=== PATIENT | male | born 1985 | race Caucasian/White ===

== ENCOUNTER 2016-12-24 17:09 | Emergency (ER) | payer BC ==
[2016-12-24] MEDS ORDERED: GLUCAGON 1 MG/ML VIAL IVP STA (18:18)
[2016-12-24] MEDS ORDERED: SODIUM CHLORIDE 0.9% 500 ML IV ONE (18:18)
[2016-12-24] MEDS ORDERED: NITROGLYCERIN SL TABS 0.4 MG TAB SUBLINGUAL STA (18:18)
[2016-12-24] MEDS ORDERED: DIAZEPAM 5 MG/ML 2 ML SYRINGE IVP STA (18:18)
[2016-12-24] MEDS ORDERED: METOCLOPRAMIDE 5 MG/ML 2 ML VIAL IVP STA (18:18)
--- NOTE | 2016-12-24 18:22 | ED ---
General Adult HPI - General Chief complaint: ENT Stated complaint: Food stuck in throat Time Seen by Provider: 12/24/16 18:00 Source: patient, RN notes reviewed Mode of arrival: ambulatory Limitations: no limitations - History of Present Illness Initial comments: This is a 31-year-old male who presents to the emergency department complaining of inability to swallow after eating boneless chicken. Patient states it started about an hour ago. Patient states he had a history of similar but typically it eventually passes. Patient denies any endoscopy procedure in the past. Patient denies any difficulty breathing shortest breath. Patient denies any recent fever or chills. patient denies any chest pain. - Related Data Home Medications Medication Instructions Recorded Confirmed No Known Home Medications [No 12/24/16 12/24/16 Known Home Medications] Allergies Allergy/AdvReac Type Severity Reaction Status Date / Time No Known Drug Allergies Allergy Unknown Verified 12/24/16 18:33 Review of Systems ROS Statement: Those systems with pertinent positive or pertinent negative responses have been documented in the HPI. ROS Other: All systems not noted in ROS Statement are negative. Past Medical History Past Medical History: No Reported History History of Any Multi-Drug Resistant Organisms: None Reported Past Surgical History: No Surgical Hx Reported Past Psychological History: No Psychological Hx Reported Smoking Status: Current every day smoker Past Alcohol Use History: None Reported Past Drug Use History: None Reported General Exam - General Exam Comments Initial Comments: GENERAL: Patient is well-developed and well-nourished. Patient is nontoxic and well- hydrated and is in mild distress. ENT: Neck is soft and supple. No significant lymphadenopathy is noted. Oropharynx is clear. Moist mucous membranes. Neck has full range of motion without eliciting any pain. EYES: The sclera were anicteric and conjunctiva were pink and moist. Extraocular movements were intact and pupils were equal round and reactive to light. Eyelids were unremarkable. PULMONARY: Unlabored respirations. Good breath sounds bilaterally. No audible rales rhonchi or wheezing was noted. CARDIOVASCULAR: There is a regular rate and rhythm without any murmurs gallops or rubs. ABDOMEN: Soft and nontender with normal bowel sounds. SKIN: Skin is clear with no lesions or rashes and otherwise unremarkable. NEUROLOGIC: Patient is alert and oriented x3. Cranial nerves II through XII are grossly intact. MUSCULOSKELETAL: Normal extremities with adequate strength and full range of motion. LYMPHATICS: No significant lymphadenopathy is noted PSYCHIATRIC: Normal psychiatric evaluation. Limitations: no limitations Course Vital Signs 12/24/16 12/24/16 12/24/16 17:16 18:38 19:03 Temperature 98.2 F Pulse Rate 103 H 77 89 Respiratory 20 14 14 Rate Blood Pressure 184/113 112/53 127/71 O2 Sat by Pulse 98 99 97 Oximetry Medical Decision Making - Medical Decision Making I gave the patient Valium and Reglan and then followed that with glucagon and nitroglycerin and had the patient swallow some burners and within 10 minutes the patient stated that food moved down and he was able to eat again. Disposition Clinical Impression: Esophageal foreign body Disposition: HOME SELF-CARE Condition: Good Instructions: Esophageal Foreign Body (ED) Additional Instructions: Patient should follow-up with gastroenterology Time of Disposition: 19:23
[2016-12-24 19:47] VITALS: BP 119/63; PULSE 90; RESP 16; TEMP 97.1
== END 2016-12-24 19:35 | disposition home or self-care (01) ==
LOC: EC 17:09
DX: T18.128A Food in esophagus causing other injury, initial encounter (principal); F17.200 Nicotine dependence, unspecified, uncomplicated
CPT/HCPCS: 99283; 96374; 96375 ×2; 96361; J1610; J2765; J3360

== ENCOUNTER 2017-01-10 07:44 | Emergency (ER) | payer BC, OTHER ==
[2017-01-10 07:50] VITALS: BP 166/97; PULSE 100; RESP 20; TEMP 97.8
--- NOTE | 2017-01-10 08:10 | ED ---
Upper Extremity HPI - General Chief Complaint: Extremity Injury, Upper Stated Complaint: Hand injury-[facility] Time Seen by Provider: 01/10/17 07:54 Source: patient, RN notes reviewed Mode of arrival: ambulatory Limitations: no limitations - History of Present Illness Initial Comments: This a 31-year-old male presents emergency Department chief complaint right hand pain. Patient states that pain for last 2 days after of ice falling onto his right hand 2 days with work. Patient states he is [id number]. Patient states he has pain across his mid hand. Patient denies any cuts caused by the fall. Patient denies any pain proximal to his hand. Denies any paresthesias. No previous injuries. Place: work - Related Data Previous Rx's Medication Instructions Recorded Acetaminophen-Codeine 300-30mg 1 tab PO Q4H PRN #20 tablet 01/10/17 [Tylenol #3] Ibuprofen [Motrin] 600 mg PO Q8HR PRN #30 tab 01/10/17 Allergies Allergy/AdvReac Type Severity Reaction Status Date / Time No Known Drug Allergies Allergy Unknown Verified 01/10/17 07:50 Review of Systems ROS Statement: Those systems with pertinent positive or pertinent negative responses have been documented in the HPI. ROS Other: All systems not noted in ROS Statement are negative. Past Medical History Past Medical History: No Reported History History of Any Multi-Drug Resistant Organisms: None Reported Past Surgical History: No Surgical Hx Reported Past Psychological History: No Psychological Hx Reported Smoking Status: Current every day smoker Past Alcohol Use History: None Reported Past Drug Use History: None Reported General Exam Limitations: no limitations General appearance: alert, in no apparent distress Neck exam: Present: normal inspection. Absent: tenderness, meningismus, lymphadenopathy Respiratory exam: Present: normal lung sounds bilaterally. Absent: respiratory distress, wheezes, rales, rhonchi, stridor Cardiovascular Exam: Present: regular rate, normal rhythm, normal heart sounds. Absent: systolic murmur, diastolic murmur, rubs, gallop, clicks Extremities exam: Present: other (Right hand there is no obvious swelling no ecchymosis no swelling there is tenderness across metacarpals 2 through 5 patient does have full range of motion neurovascular intact radial pulses equal bilaterally no wrist tenderness, no scaphoid tenderness) Course Vital Signs 01/10/17 07:48 Temperature 97.8 F Pulse Rate 100 Respiratory 20 Rate Blood Pressure 166/97 O2 Sat by Pulse 98 Oximetry Medical Decision Making - Medical Decision Making 31-year-old male present emergency department right hand injury. There is no acute fracture. Patient be discharged with medications this time with follow- up with [facility]. Disposition Clinical Impression: Contusion of right hand Disposition: HOME SELF-CARE Condition: Stable Instructions: Contusion in Adults (ED) Additional Instructions: Please return to the Emergency Department if symptoms worsen or any other concerns. Prescriptions: Acetaminophen-Codeine 300-30mg [Tylenol #3] 1 tab PO Q4H PRN #20 tablet PRN Reason: pain Ibuprofen [Motrin] 600 mg PO Q8HR PRN #30 tab PRN Reason: Pain Time of Disposition: 08:10
--- NOTE | 2017-01-10 08:47 | XR ---
EXAMINATION TYPE: XR hand complete RT DATE OF EXAM: 01/10/2017 8:10 AM COMPARISON: NONE HISTORY: Pain TECHNIQUE: Three views are submitted. FINDINGS: The osseous structures are intact. The joint spaces are preserved and there is no acute fracture or dislocation. IMPRESSION: 1. No definite acute fracture or dislocation if symptoms persist, follow-up study in 7 to 10 days wo uld be suggested
== END 2017-01-10 08:21 | disposition home or self-care (01) ==
LOC: EC 07:44
DX: S60.221A Contusion of right hand, initial encounter (principal); W22.8XXA Striking against or struck by other objects, initial encounter; Y99.0 Civilian activity done for income or pay; F17.200 Nicotine dependence, unspecified, uncomplicated
CPT/HCPCS: 99283

== ENCOUNTER 2017-01-23 19:42 | Emergency (ER) | payer BC, OTHER ==
--- NOTE | 2017-01-23 20:11 | ED ---
General Adult HPI - General Chief complaint: Extremity Injury, Upper Stated complaint: re-injury rt hand Time Seen by Provider: 01/23/17 20:00 Source: patient, RN notes reviewed Mode of arrival: ambulatory Limitations: no limitations - History of Present Illness Initial comments: This is a 31-year-old male who presents with right hand pain since 5:00 this evening. Patient states he was working on his lawnmower when the mower deck fell onto his right hand. Patient reports pain over the dorsal aspect of the right hand and to the right second through fourth digits. Patient denies any wrist pain. Patient states it hurts to make a fist. Patient denies any numbness/tingling or weakness. Patient denies any recent fever, chills, shortness breath, chest pain, abdominal pain, nausea/vomiting/diarrhea, back pain, hematuria, headache, or visual changes, or any other complaints. - Related Data Home Medications Medication Instructions Recorded Confirmed clonazePAM [KlonoPIN] 0.5 mg PO DAILY PRN 01/23/17 01/23/17 Allergies Allergy/AdvReac Type Severity Reaction Status Date / Time No Known Drug Allergies Allergy Unknown Verified 01/23/17 20:01 Review of Systems ROS Statement: Those systems with pertinent positive or pertinent negative responses have been documented in the HPI. ROS Other: All systems not noted in ROS Statement are negative. Past Medical History Past Medical History: No Reported History History of Any Multi-Drug Resistant Organisms: None Reported Past Surgical History: No Surgical Hx Reported Past Psychological History: No Psychological Hx Reported Smoking Status: Current every day smoker Past Alcohol Use History: None Reported Past Drug Use History: None Reported General Exam - General Exam Comments Initial Comments: General: The patient is awake and alert, in no distress, and does not appear acutely ill. Neck: The neck is supple, there is no tenderness or JVD. Cardiovascular: There is a regular rate and rhythm. No murmur, rub or gallop is appreciated. Respiratory: Lungs are clear to auscultation, respirations are non-labored, breath sounds are equal. No wheezes, stridor, rales, or rhonchi. Musculoskeletal: There is generalized tenderness to palpation over the second through fourth digits of the right hand and there is also generalized tenderness to palpation over the dorsal aspect of the metacarpals of the right hand. There is no wrist pain or pain in the anatomical snuffbox. There is no swelling, ecchymosis or erythema. Patient has good range of motion but slightly limited due to pain with making a fist. Otherwise strength is 5/5 in Sensation intact. Radial pulses are 2+ bilaterally and capillary refill is normal at less than 2 seconds. Neurological: A&O x 3. CN II-XII intact, There are no obvious motor or sensory deficits. Coordination appears grossly intact. Speech is normal. Skin: Small abrasion over the 4th MCP joint of the right hand. Skin is warm and dry and no rashes or lesions are noted. Psychiatric: Normal mood and affect. Limitations: no limitations Course Vital Signs 01/23/17 01/23/17 19:53 21:19 Temperature 98.3 F 98.2 F Pulse Rate 107 H 102 H Respiratory 20 16 Rate Blood Pressure 153/88 163/96 O2 Sat by Pulse 97 96 Oximetry Medical Decision Making - Medical Decision Making This is a 31-year-old male right hand pain since 5 PM today after a mower deck fell onto his hand. On physical exam there is generalized tenderness to palpation over the second through fourth digits of the right hand and there is also generalized tenderness to palpation over the dorsal aspect of the metacarpals of the right hand. There is no wrist pain or pain in the anatomical snuffbox. There is no swelling, ecchymosis or erythema. Patient has good range of motion but slightly limited due to pain with making a fist. Otherwise strength is 5/5 in Sensation intact. Radial pulses are 2+ bilaterally and capillary refill is normal at less than 2 seconds. An x-ray of the right hand is done and reviewed showing: Negative right hand exam. No change. Reported by Dr. Love. Please rest, ice, elevate and use Tylenol or Motrin for pain. May use Brad wrap for compression during the day. Discussed occult fracture. I discussed return parameters. Discussed that patient should follow up with PCP in one to 2 days or return to the [facility] for any worsening symptoms or for any further concerns. Patient was receptive to this plan and patient will be discharged home. Disposition Clinical Impression: Hand sprain Disposition: HOME SELF-CARE Condition: Good Instructions: Hand Sprain (ED) Additional Instructions: Please rest, ice, elevate and use Brad wrap for compression. Please use Tylenol and Motrin for pain.If symptoms do not improve in the next 7 days repeat x-rays may be needed to rule out occult fracture. Please follow-up with your family doctor in the next 2 days of symptoms have not improved. Please return to emergency room if the symptoms increase or worsen or for any other concerns. Referrals: Nilson Ponce MD [Primary Care Provider] - 1-2 days Time of Disposition: 21:03
--- NOTE | 2017-01-23 20:55 | XR ---
EXAMINATION TYPE: XR hand complete RT DATE OF EXAM: 01/23/2017 8:32 PM COMPARISON: 01/10/2017 HISTORY: Pain TECHNIQUE: 3 views FINDINGS: I see no fracture nor dislocation. Metacarpals are intact. There are no erosions. IMPRESSION: Negative right hand exam. No change.
[2017-01-23 21:21] VITALS: BP 163/96; PULSE 102; RESP 16; TEMP 98.2
== END 2017-01-23 21:21 | disposition home or self-care (01) ==
LOC: EC 19:42
DX: S63.91XA Sprain of unspecified part of right wrist and hand, initial encounter (principal); W22.8XXA Striking against or struck by other objects, initial encounter; F17.200 Nicotine dependence, unspecified, uncomplicated; Z79.899 Other long term (current) drug therapy
CPT/HCPCS: 99283

== ENCOUNTER 2017-02-26 11:33 | Emergency (ER) | payer OTHER ==
[2017-02-26 11:37] VITALS: BP 122/84; PULSE 104; RESP 18; TEMP 97.2
--- NOTE | 2017-02-26 11:56 | ED ---
Upper Extremity HPI - General Chief Complaint: Extremity Injury, Upper Stated Complaint: left hand injury Source: patient Mode of arrival: ambulatory Limitations: no limitations - History of Present Illness Initial Comments: Patient is a 31-year-old male who presents for reevaluation after he dropped a window before meals unit on his second digit of the left hand. Past medical history as below. This occurred around 1 AM this morning. He went to an urgent care facility who did plain films and told him he had a closed distal phalanx fracture of the second digit. They provided him with a DTaP shot. Gave him antibiotics. Covered the wound and was placed in a splint. Part of the nail was dislodged. There is no underlying laceration. He is right- handed. He was not provided with orthopedic follow-up. Was not provided any pain medications. He was told to elevate his left hand and take Tylenol and Motrin. He comes in today because of worsening pain and swelling. The Tylenol Motrin are not helping. He states explicitly that he was not in a fight knowing his finger. Currently denies fever, headaches, shortness of breath, cough, chest pain, nausea, vomiting, diarrhea, pain or burning with urination. - Related Data Home Medications Medication Instructions Recorded Confirmed clonazePAM [KlonoPIN] 0.5 mg PO DAILY PRN 01/23/17 01/23/17 Previous Rx's Medication Instructions Recorded HYDROcodone/APAP 5-325MG [[place] 1 tab PO Q6HR PRN #10 tab 02/26/17 5-325] Allergies Allergy/AdvReac Type Severity Reaction Status Date / Time No Known Drug Allergies Allergy Unknown Verified 02/26/17 11:37 Review of Systems ROS Statement: Those systems with pertinent positive or pertinent negative responses have been documented in the HPI. ROS Other: All systems not noted in ROS Statement are negative. Past Medical History Past Medical History: No Reported History History of Any Multi-Drug Resistant Organisms: None Reported Past Surgical History: No Surgical Hx Reported Past Psychological History: No Psychological Hx Reported Smoking Status: Current every day smoker Past Alcohol Use History: None Reported Past Drug Use History: None Reported General Exam Limitations: no limitations General appearance: alert, in no apparent distress, other (Nontoxic appearing) Head exam: Present: atraumatic, normocephalic, normal inspection Eye exam: Present: normal appearance, PERRL, EOMI. Absent: scleral icterus, conjunctival injection, periorbital swelling ENT exam: Present: normal exam, mucous membranes moist Neck exam: Present: normal inspection. Absent: tenderness, meningismus, lymphadenopathy Respiratory exam: Present: normal lung sounds bilaterally. Absent: respiratory distress, wheezes, rales, rhonchi, stridor Cardiovascular Exam: Present: regular rate, normal rhythm, normal heart sounds. Absent: systolic murmur, diastolic murmur, rubs, gallop, clicks GI/Abdominal exam: Present: soft, normal bowel sounds. Absent: distended, tenderness, guarding, rebound, rigid Extremities exam: Present: normal capillary refill, other (There is a crush injury to the distal second digit on the left hand. A portion of the distal nail is removed. There is no underlying laceration. There is some active oozing of blood. The nailbed is intact. There is no subungual hematoma. Limited flexion and extension of the second digit secondary to pain and swelling. Good strength to the finger. Cap refill intact and less than 3 seconds. Sensation intact all throughout the finger.). Absent: tenderness, pedal edema, joint swelling, calf tenderness Back exam: Present: normal inspection Neurological exam: Present: alert, oriented X3, CN II-XII intact Psychiatric exam: Present: normal affect, normal mood Skin exam: Present: warm, dry, intact, normal color. Absent: rash Course Vital Signs 02/26/17 11:35 Temperature 97.2 F L Pulse Rate 104 H Respiratory 18 Rate Blood Pressure 122/84 O2 Sat by Pulse 96 Oximetry Medical Decision Making - Medical Decision Making Patient presents for reevaluation of a closed second digit distal phalanx fracture. The nailbed is intact. Oozing from the distal fingertip. Applied pressure with resolution of active bleeding. Patient did admit that he took away some of the nail which is probably why he is still bleeding. He received T And appropriate antibiotics. I put bacitracin over the wound and wrapped with a nonadherent bandage. Splinted his finger to his third digit. We'll discharge home with [place]. Encouraged elevation and ice. Tylenol/Motrin as needed for pain in addition. Provided a hand surgeon for follow-up. Discussed signs and symptoms on when to return to the emergency department for further evaluation. Comfortable discharge home and will follow-up. Disposition Clinical Impression: Distal phalanx or phalanges, closed fracture Disposition: HOME SELF-CARE Condition: Good Instructions: Finger Fracture (ED) Prescriptions: HYDROcodone/APAP 5-325MG [[place] 5-325] 1 tab PO Q6HR PRN #10 tab PRN Reason: Pain Referrals: Nilson Ponce MD [Primary Care Provider] - 1-2 days Dhruv Flower DO [Doctor of Osteopathic Medicine] - 1-2 days
[2017-02-26] MEDS ORDERED: KETOROLAC 30 MG/ML 1 ML VIAL IM STA (12:19)
== END 2017-02-26 12:30 | disposition home or self-care (01) ==
LOC: EC 11:33
DX: S62.637D Displaced fracture of distal phalanx of left little finger, subsequent encounter for fracture with routine healing (principal); F17.200 Nicotine dependence, unspecified, uncomplicated
CPT/HCPCS: 99283; 96372; J1885

== ENCOUNTER 2017-03-04 14:37 | Emergency (ER) | payer OTHER ==
[2017-03-04 14:49] VITALS: BP 155/94; PULSE 84; RESP 16; TEMP 97.5
--- NOTE | 2017-03-04 14:55 | ED ---
Wound/Laceration HPI - General Chief Complaint: Wound/Laceration Stated Complaint: finger injury Time Seen by Provider: 03/04/17 14:45 Source: patient, RN notes reviewed Mode of arrival: ambulatory Limitations: no limitations - History of Present Illness Initial Comments: 31-year-old male presents for reevaluation of his left index finger. Patient states a week ago he slammed in the door he came here and was sent home. Patient states that today he cut off the part of the nail that broke through the emergency room. Patient denies any bleeding from the area. Patient states he does have some pain to the distal finger. Patient denies any cough cold runny nose patient denies any fever chills. Patient was concerned due to his continued symptoms were thought that he should be evaluated.Patient denies any recent fever, chills, shortness of breath, chest pain, back pain, abdominal pain , nausea vomiting, numbness or tingling, dysuria or hematuria, constipation or diarrhea, headaches or visual changes, or any other current symptoms. - Related Data Home Medications Medication Instructions Recorded Confirmed Naproxen [Naproxen] 500 mg PO BID 02/26/17 02/26/17 busPIRone HCL [Buspar] 15 mg PO BID 02/26/17 02/26/17 clonazePAM [Clonazepam] 0.5 mg PO DIRECTED 02/26/17 02/26/17 Previous Rx's Medication Instructions Recorded HYDROcodone/APAP 5-325MG [[place] 1 tab PO Q6HR PRN #10 tab 02/26/17 5-325] Ibuprofen [Motrin] 600 mg PO Q6HR PRN #20 tab 03/04/17 Orphenadrine [Norflex] 100 mg PO Q12H #10 tablet.er 03/04/17 Allergies Allergy/AdvReac Type Severity Reaction Status Date / Time No Known Drug Allergies Allergy Unknown Verified 03/04/17 14:45 Review of Systems ROS Statement: Those systems with pertinent positive or pertinent negative responses have been documented in the HPI. ROS Other: All systems not noted in ROS Statement are negative. Past Medical History Past Medical History: No Reported History History of Any Multi-Drug Resistant Organisms: None Reported Past Surgical History: No Surgical Hx Reported Past Psychological History: No Psychological Hx Reported Smoking Status: Current every day smoker Past Alcohol Use History: None Reported Past Drug Use History: None Reported General Exam - General Exam Comments Initial Comments: General: The patient is awake and alert, in no distress, and does not appear acutely ill. Neck: The neck is supple, there is no tenderness. Cardiovascular: There is a regular rate and rhythm. No murmur, rub or gallop is appreciated. Respiratory: Lungs are clear to auscultation, respirations are non-labored, breath sounds are equal. No wheezes, stridor, rales, or rhonchi. Musculoskeletal: Sensation intact with 2+ pulses throughout left upper extremity. Range of motion throughout right upper extremity. Subungual hematoma with some injury to the nail. No injury to the nail bed. No bleeding at the site. Neurological: CN II-XII intact, There are no obvious motor or sensory deficits. Coordination appears grossly intact. Speech is normal. Skin: Skin is warm and dry and no rashes or lesions are noted. Psychiatric: Normal mood and affect. Limitations: no limitations Course Vital Signs 03/04/17 14:45 Temperature 97.5 F L Pulse Rate 84 Respiratory 16 Rate Blood Pressure 155/94 Procedures - Orthopedic Splinting/Casting Injury #1 Side: right Upper Extremity Injury Location: finger Upper Extremity Immobilizer: aluminum form splint Medical Decision Making - Medical Decision Making 31-year-old male presents for what appears to be subungual hematoma. X-ray does show a possible tuft fracture. This time patient was placed in a splint and given follow-up to her toe. This time we discussed continued ice the area. We discussed return parameters and follow up. We discussed Motrin Tylenol. We discussed outpatient family's questions. They stated they understood and they argued and plan. At this time they will be discharged home. - Radiology Data Radiology results: report reviewed, image reviewed Disposition Clinical Impression: Subungual hematoma of left index finger, Finger fracture, left Disposition: HOME SELF-CARE Condition: Stable Instructions: Subungual Hematoma (ED), Finger Fracture (ED) Additional Instructions: Please use medication as discussed. Please follow up with family doctor if symptoms have not improved over the next two days. Please return to the emergency room if your symptoms increase or worsen or for any other concerns. Prescriptions: Ibuprofen [Motrin] 600 mg PO Q6HR PRN #20 tab PRN Reason: Pain Orphenadrine [Norflex] 100 mg PO Q12H #10 tablet.er Referrals: Nilson Ponce MD [Primary Care Provider] - 1-2 days Jadon Evans MD [STAFF PHYSICIAN] - 1-2 days Time of Disposition: 16:18
--- NOTE | 2017-03-04 16:16 | XR ---
Left finger HISTORY: Trauma and pain 3 views of the left finger Bone mineralization, joint spaces and alignment are maintained. There is some questionable irregulari ty of the tuft of the second digit of the left hand on the lateral view. IMPRESSION: There may be a small fracture involving the tuft of the second digit.
== END 2017-03-04 16:20 | disposition home or self-care (01) ==
LOC: EC 14:37
DX: S62.601A Fracture of unspecified phalanx of left index finger, initial encounter for closed fracture (principal); F17.200 Nicotine dependence, unspecified, uncomplicated; Z79.899 Other long term (current) drug therapy; W23.0XXA Caught, crushed, jammed, or pinched between moving objects, initial encounter
CPT/HCPCS: 99283

== ENCOUNTER 2018-01-27 13:26 | Emergency (ER) | payer BC ==
[2018-01-27] MEDS ORDERED: KETOROLAC 30 MG/ML 1 ML VIAL IM STA (14:44)
--- NOTE | 2018-01-27 15:09 | XR ---
EXAMINATION TYPE: XR lumbar spine 2 or 3V DATE OF EXAM: 01/27/2018 CLINICAL HISTORY: pain TECHNIQUE: Three views of the lumbar spine are submitted. COMPARISON: None. FINDINGS: There are 5 lumbar type vertebral bodies identified. The lumbar spine shows satisfactory alignment w ithout evidence of acute fracture or dislocation. Vertebral body heights are within normal limits. Disc spaces are within normal limits. The overlying soft tissue appears unremarkable. IMPRESSION: No acute fracture or dislocation is seen in the lumbar spine. ICD 10 NO FRACTURE, INITIAL EVALUATION
--- NOTE | 2018-01-27 15:13 | ED ---
General Adult HPI - General Chief complaint: Back Pain/Injury Stated complaint: Lower Back Pain Time Seen by Provider: 01/27/18 14:30 Source: patient, RN notes reviewed Mode of arrival: ambulatory Limitations: no limitations - History of Present Illness Initial comments: 32-year-old male presents to the emergency department for a chief complaint of low back pain. Patient states this started a few days ago. Patient states he has shooting pain from his low back through his left buttock and to his knee. Patient denies change in bladder or bowel function. Patient states he is able to walk fine. He states the pain is worse at night when he is trying to sleep. Patient has not experienced this pain before. Patient denies any recent trauma or injuries. 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 - Related Data Previous Rx's Medication Instructions Recorded Cyclobenzaprine [Flexeril] 10 mg PO TID #20 tab 01/27/18 predniSONE 50 mg PO DAILY #5 tablet 01/27/18 Allergies Allergy/AdvReac Type Severity Reaction Status Date / Time No Known Drug Allergies Allergy Unknown Verified 01/27/18 14:04 Review of Systems ROS Statement: Those systems with pertinent positive or pertinent negative responses have been documented in the HPI. ROS Other: All systems not noted in ROS Statement are negative. Past Medical History Past Medical History: No Reported History History of Any Multi-Drug Resistant Organisms: None Reported Past Surgical History: No Surgical Hx Reported Past Psychological History: Anxiety Smoking Status: Current every day smoker Past Alcohol Use History: None Reported Past Drug Use History: None Reported General Exam Limitations: no limitations Head exam: Present: atraumatic, normocephalic, normal inspection Eye exam: Present: normal appearance, PERRL, EOMI. Absent: scleral icterus, conjunctival injection, periorbital swelling Respiratory exam: Present: normal lung sounds bilaterally. Absent: respiratory distress, wheezes, rales, rhonchi, stridor Cardiovascular Exam: Present: regular rate, normal rhythm, normal heart sounds. Absent: systolic murmur, diastolic murmur, rubs, gallop, clicks Extremities exam: Present: normal inspection, full ROM, normal capillary refill , other (Sensation is equal bilaterally in LE, 2+ pedal pulses). Absent: tenderness, pedal edema, joint swelling, calf tenderness Back exam: Present: normal inspection, full ROM. Absent: tenderness, CVA tenderness (R), CVA tenderness (L), paraspinal tenderness, vertebral tenderness Course Vital Signs 01/27/18 13:48 Temperature 98 F Pulse Rate 86 Respiratory 18 Rate Blood Pressure 140/90 O2 Sat by Pulse 98 Oximetry Medical Decision Making - Medical Decision Making 32-year-old male presents for a chief complaint of low back pain. Patient states the pain begins in his low back and shoots down his buttock and down his leg. Patient denies numbness in either extremity. Patient has equal sensation and strength in both lower extremities bilaterally. Pedal pulses 2+ bilaterally. Patient denies any recent injuries. X-ray shows no acute fractures or dislocations. 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 Patient will be sent home with steroids, ibuprofen, and Flexeril. He will follow up with primary care in 1-2 days. He will return to the emergency Department if he notices any worsening symptoms. Disposition Clinical Impression: Sciatica Disposition: HOME SELF-CARE Condition: Good Instructions: Acute Low Back Pain (ED), Sciatica (ED) Additional Instructions: Please take steroids as directed. Please use ibuprofen and Flexeril for symptom relief. Please follow up with primary care provider in one to 2 days. Please return to the emergency department if you have for worsening of symptoms or you begin to lose function of bladder or bowels. Prescriptions: Cyclobenzaprine [Flexeril] 10 mg PO TID #20 tab predniSONE 50 mg PO DAILY #5 tablet Referrals: Nilson Ponce MD [Primary Care Provider] - 1-2 days Time of Disposition: 15:36
[2018-01-27 15:48] VITALS: BP 139/78; PULSE 78; RESP 16; TEMP 97.9
== END 2018-01-27 15:47 | disposition home or self-care (01) ==
LOC: EC 13:26
DX: M54.40 Lumbago with sciatica, unspecified side (principal); F17.200 Nicotine dependence, unspecified, uncomplicated
CPT/HCPCS: 72100; 96372; 99283

== ENCOUNTER 2018-11-23 17:55 | Emergency (ER) | payer BC ==
[2018-11-23 18:22] VITALS: RESP 18; TEMP 98.2
[2018-11-23] MEDS ORDERED: SODIUM CHLORIDE 0.9% 1,000 ML IV STA (18:56)
--- NOTE | 2018-11-23 18:57 | ED ---
General Adult HPI - General Chief complaint: Dizziness Stated complaint: Not feeling good Time Seen by Provider: 11/23/18 18:34 Source: patient, RN notes reviewed, old records reviewed Mode of arrival: ambulatory Limitations: no limitations - History of Present Illness Initial comments: This is a 33-year-old female the ER for evaluation of dizziness. Patient states he has dizziness weakness and not feeling well for a couple weeks now. Patient states he wakes up at night transient sweat. Denies any shortness of breath chest pain or bowel pain. No fevers. No chills. Rest travel history or known sick contacts of family members with similar complaints. Patient takes no medications denies drug or alcohol abuse. Patient's concerned that he may have diabetes -: week(s) Radiation: non-radiation Quality: other (Weakness) Consistency: intermittent Improves with: none Associated Symptoms: diaphoresis, weakness Treatments Prior to Arrival: none - Related Data Home Medications Medication Instructions Recorded Confirmed No Known Home Medications 11/23/18 11/23/18 Allergies Allergy/AdvReac Type Severity Reaction Status Date / Time No Known Drug Allergies Allergy Unknown Verified 11/23/18 19:19 Review of Systems ROS Statement: Those systems with pertinent positive or pertinent negative responses have been documented in the HPI. ROS Other: All systems not noted in ROS Statement are negative. Past Medical History Past Medical History: No Reported History History of Any Multi-Drug Resistant Organisms: None Reported Past Surgical History: No Surgical Hx Reported Past Psychological History: Anxiety Smoking Status: Current every day smoker Past Alcohol Use History: Occasional Past Drug Use History: None Reported General Exam Limitations: no limitations General appearance: alert, in no apparent distress Head exam: Present: atraumatic, normocephalic, normal inspection Eye exam: Present: normal appearance, PERRL, EOMI. Absent: scleral icterus, conjunctival injection, periorbital swelling ENT exam: Present: normal exam, mucous membranes moist Neck exam: Present: normal inspection. Absent: tenderness, meningismus, lymphadenopathy Respiratory exam: Present: normal lung sounds bilaterally. Absent: respiratory distress, wheezes, rales, rhonchi, stridor Cardiovascular Exam: Present: regular rate, normal rhythm, normal heart sounds. Absent: systolic murmur, diastolic murmur, rubs, gallop, clicks GI/Abdominal exam: Present: soft, normal bowel sounds. Absent: distended, tenderness, guarding, rebound, rigid Extremities exam: Present: normal inspection, full ROM, normal capillary refill. Absent: tenderness, pedal edema, joint swelling, calf tenderness Back exam: Present: normal inspection Neurological exam: Present: alert, oriented X3, CN II-XII intact Psychiatric exam: Present: normal affect, normal mood Skin exam: Present: warm, dry, intact, normal color. Absent: rash Course Vital Signs 11/23/18 11/23/18 18:20 23:44 Temperature 98.2 F Pulse Rate 89 69 Respiratory 18 18 Rate Blood Pressure 160/115 138/92 O2 Sat by Pulse 97 98 Oximetry Medical Decision Making - Medical Decision Making 30 female the ER for not feeling well. Patient has extensive testing including lab values as well as ultrasound gallbladder which are negative. Patient feels reassured that he doesn't have diabetes diabetes and can be discharged home - Lab Data Result diagrams: 11/23/18 19:05 11/23/18 19:05 Lab Results 11/23/18 11/23/18 11/23/18 Range/Units 19:05 19:05 19:55 WBC 6.3 (3.8-10.6) k/uL RBC 5.29 (4.30-5.90) m/uL Hgb 17.7 H (13.0-17.5) gm/dL Hct 51.3 (39.0-53.0) % MCV 97.0 (80.0-100.0) fL MCH 33.5 (25.0-35.0) pg MCHC 34.5 (31.0-37.0) g/dL RDW 11.8 (11.5-15.5) % Plt Count 234 (150-450) k/uL Neutrophils % 70 % Lymphocytes % 16 % Monocytes % 7 % Eosinophils % 3 % Basophils % 1 % Neutrophils # 4.4 (1.3-7.7) k/uL Lymphocytes # 1.0 (1.0-4.8) k/uL Monocytes # 0.5 (0-1.0) k/uL Eosinophils # 0.2 (0-0.7) k/uL Basophils # 0.1 (0-0.2) k/uL Sodium 139 (137-145) mmol/L Potassium 4.3 (3.5-5.1) mmol/L Chloride 106 (98-107) mmol/L Carbon Dioxide 23 (22-30) mmol/L Anion Gap 10 mmol/L BUN 11 (9-20) mg/dL Creatinine 0.72 (0.66-1.25) mg/dL Est GFR (CKD-EPI)AfAm >90 (>60 ml/min/1.73 sqM) Est GFR (CKD-EPI)NonAf >90 (>60 ml/min/1.73 sqM) Glucose 96 (74-99) mg/dL Calcium 9.4 (8.4-10.2) mg/dL Phosphorus 3.2 (2.5-4.5) mg/dL Magnesium 2.1 (1.6-2.3) mg/dL Total Bilirubin 1.4 H (0.2-1.3) mg/dL AST 72 H (17-59) U/L ALT 49 (21-72) U/L Alkaline Phosphatase 138 H (38-126) U/L Total Protein 6.9 (6.3-8.2) g/dL Albumin 4.5 (3.5-5.0) g/dL TSH 1.580 (0.465-4.680) mIU/L Urine Color Yellow Urine Appearance Clear (Clear) Urine pH 7.0 (5.0-8.0) Ur Specific [place] 1.018 (1.001-1.035) Urine Protein Trace H (Negative) Urine Glucose (UA) Negative (Negative) Urine Ketones 2+ H (Negative) Urine Blood Negative (Negative) Urine Nitrite Negative (Negative) Urine Bilirubin Negative (Negative) Urine Urobilinogen 2.0 (<2.0) mg/dL Ur Leukocyte Esterase Negative (Negative) - Radiology Data Radiology results: report reviewed (Ultrasound gallbladder negative for acute disease), image reviewed Disposition Clinical Impression: Diaphoresis, Night sweats Disposition: HOME SELF-CARE Condition: Good Instructions (If sedation given, give patient instructions): Dizziness (ED) Is patient prescribed a controlled substance at d/c from ED?: No Referrals: None,Stated [Primary Care Provider] - 1-2 days
[2018-11-23 19:46] LABS: Basophils # (A) 0.1 k/uL (0-0.2); Basophils % (A) 1 %; Eosinophils # (A) 0.2 k/uL (0-0.7); Eosinophils % (A) 3 %; HCT 51.3 % (39.0-53.0); HGB 17.7 gm/dL (13.0-17.5); Lymphocytes % (A) 16 %; MCH 33.5 pg (25.0-35.0); MCHC 34.5 g/dL (31.0-37.0); Mean Platelet Volume 7.1; Monocytes # (A) 0.5 k/uL (0-1.0); Monocytes % (A) 7 %; Neutrophils # (A) 4.4 k/uL (1.3-7.7); Neutrophils % (A) 70 %; Platelet Count 234 k/uL (150-450); RBC 5.29 m/uL (4.30-5.90); RDW 11.8 % (11.5-15.5); WBC 6.3 k/uL (3.8-10.6)
[2018-11-23 20:06] LABS: Appearance,Urine Clear (Clear); Bilirubin,Urine Negative (Negative); Blood,Urine Negative (Negative); Color,Urine Yellow; Glucose,Urine (UA) Negative (Negative); Ketones,Urine 2+ (Negative); Leukocyte Esterase,Urine Negative (Negative); Nitrite,Urine Negative (Negative); Protein,Urine Trace (Negative); Specific Gravity,Urine 1.018 (1.001-1.035)
[2018-11-23 20:21] LABS: ALT 49 U/L (21-72); AST 72 U/L (17-59); Albumin 4.5 g/dL (3.5-5.0); Alkaline Phosphatase 138 U/L (38-126); Anion Gap 10 mmol/L; Blood Urea Nitrogen 11 mg/dL (9-20); Calcium 9.4 mg/dL (8.4-10.2); Carbon Dioxide 23 mmol/L (22-30); Chloride 106 mmol/L (98-107); Glucose 96 mg/dL (74-99); Magnesium 2.1 mg/dL (1.6-2.3); Phosphorus 3.2 mg/dL (2.5-4.5); Potassium 4.3 mmol/L (3.5-5.1); Sodium 139 mmol/L (137-145); Total Bilirubin 1.4 mg/dL (0.2-1.3); Total Protein 6.9 g/dL (6.3-8.2)
--- NOTE | 2018-11-23 23:16 | US ---
EXAMINATION TYPE: US gallbladder DATE OF EXAM: 11/23/2018 COMPARISON: NONE CLINICAL HISTORY: Pain. Pain EXAM MEASUREMENTS: Liver Length: 15.6 cm Gallbladder Wall: 0.3 cm CBD: 0.4 cm Right Kidney: 10.7 x 4.1 x 4.9 cm Pancreas: wnl Liver: wnl Gallbladder: wnl Evidence for sonographic Ordonez's sign: No CBD: wnl Right Kidney: wnl IMPRESSION: Normal right upper quadrant abdominal sonogram. No gallstones or dilated ducts.
[2018-11-23 23:45] VITALS: BP 138/92; PULSE 69
== END 2018-11-23 23:44 | disposition home or self-care (01) ==
LOC: EC 17:55
DX: R61 Generalized hyperhidrosis (principal); R42 Dizziness and giddiness; R53.1 Weakness; F17.200 Nicotine dependence, unspecified, uncomplicated
CPT/HCPCS: 36415; 76705; 80053; 81003; 83735; 84100; 84443; 85025; 87086; 96360; 99284

== ENCOUNTER 2019-01-31 16:56 | Emergency (ER) | payer BC, OTHER ==
[2019-01-31 17:53] LABS: Appearance,Urine Clear (Clear); Bilirubin,Urine Negative (Negative); Blood,Urine Negative (Negative); Color,Urine Yellow; Glucose,Urine (UA) 2+ (Negative); Ketones,Urine 1+ (Negative); Leukocyte Esterase,Urine Trace (Negative); Mucus,Urine Many /hpf; Nitrite,Urine Negative (Negative); Protein,Urine Trace (Negative); Specific Gravity,Urine 1.024 (1.001-1.035); WBC,Urine 7 /hpf (0-5)
[2019-01-31 17:54] LABS: Amphetamine Screen,Urine Not Detected (NotDetected); Barbiturate Screen,Urine Not Detected (NotDetected); Benzodiazepines Screen,Urine Not Detected (NotDetected); Cocaine Screen,Urine Not Detected (NotDetected); Methadone Screen, Urine Not Detected (NotDetected); Opiate Screen,Urine Not Detected (NotDetected); Oxycodone Screen, Urine Not Detected (NotDetected); Phencyclidine Screen,Urine Not Detected (NotDetected); Tricyclic Antidepressant,Urine Not Detected (NotDetected); Urn Cannabinoid Scrn Detected (NotDetected)
--- NOTE | 2019-01-31 18:06 | ED ---
Psych HPI - General Chief Complaint: Psychiatric Symptoms Stated Complaint: Mental health Time Seen by Provider: 01/31/19 17:25 Source: patient Mode of arrival: ambulatory - History of Present Illness Initial Comments: 33-year-old male with past medical history of hypertension presenting today for chief complaint of "brought in by friend". Patient states that last night he was drinking heavily, he states he recently lost his job. He was stating his frustration with job loss and told this when he thought about killing himself. He denied plan. Patient states this morning he had no recollection of this comment. He states his friend brought him to the emergency department for evaluation. Patient denies any current suicidal thoughts or plan. He denies any homicidal ideation. Patient states he has been sad, stress over not having a job however does not feel suicidal. Remaining review of systems negative, patient denies any recent fever, chills, shortness of breath, chest pain, back pain, abdominal pain, nausea or vomiting, numbness or tingling, dysuria or hematuria, constipation or diarrhea, headaches or visual changes, or any other complaints. Pt states he only presented to the ER because his friend made him. - Related Data Home Medications Medication Instructions Recorded Confirmed No Known Home Medications 11/23/18 01/31/19 Allergies Allergy/AdvReac Type Severity Reaction Status Date / Time No Known Drug Allergies Allergy Unknown Verified 01/31/19 17:36 Review of Systems ROS Statement: Those systems with pertinent positive or pertinent negative responses have been documented in the HPI. ROS Other: All systems not noted in ROS Statement are negative. Past Medical History Past Medical History: No Reported History History of Any Multi-Drug Resistant Organisms: None Reported Past Surgical History: No Surgical Hx Reported Past Psychological History: Anxiety Smoking Status: Current every day smoker Past Alcohol Use History: Daily Past Drug Use History: Marijuana General Exam - General Exam Comments Initial Comments: General: The patient is awake and alert, in no distress, and does not appear acutely ill. Eye: +3 mm pupils are equal, round and reactive to light, extra-ocular movements are intact. No nystagmus. There is normal conjunctiva bilaterally. No signs of icterus. Ears, nose, mouth and throat: There are moist mucous membranes and no oral lesions. Neck: The neck is supple, there is no tenderness or JVD. Cardiovascular: There is a regular rate and rhythm. No murmur, rub or gallop is appreciated. Respiratory: Lungs are clear to auscultation, respirations are non-labored, breath sounds are equal. No wheezes, stridor, rales, or rhonchi. Gastrointestinal: Soft, non-distended, non-tender abdomen without masses or organomegaly noted. There is no rebound or guarding present. Bowel sounds are unremarkable. Musculoskeletal: Normal ROM, no tenderness. Strength 5/5. Sensation intact. Radial pulses equal bilaterally 2+. Neurological: A&O x 3. CN II-XII intact, There are no obvious motor or sensory deficits. Coordination appears grossly intact. Speech is normal. Skin: Skin is warm and dry and no rashes or lesions are noted. Psychiatric: Cooperative, appropriate mood & affect, normal judgment. Limitations: no limitations Course Vital Signs 01/31/19 16:59 Temperature 98.1 F Pulse Rate 73 Respiratory 18 Rate Blood Pressure 170/103 O2 Sat by Pulse 98 Oximetry - Reevaluation(s) Reevaluation #1: Patient was evaluated by EPS after medical clearance. Recommendation discharge after speaking with psychiatrist, Dr. Handley. 01/31/19 19:33 Medical Decision Making - Medical Decision Making 33-year-old male presenting for evaluation after friend dropped off for suicidal ideation last night. Patient has no recollection of comment made while intoxicated. She is not currently intoxicated. Patient denies suicidal or homicidal ideation. Patient not petition. Patient states he has had some increased stress due to loss of job. He states he would not kill himself. Patient was evaluated by EPS who recommended discharge after speaking with psychiatrist Dr. Handley. Pt was provided resources for outpatient counseling and crisis hot line. Return parameters were discussed at length the patient, he verbalized understanding. Patient discharged appearing well, as I do not feel at this time he is harm to himself or others. - Lab Data Lab Results 01/31/19 Range/Units 17:29 Urine Color Yellow Urine Appearance Clear (Clear) Urine pH 6.0 (5.0-8.0) Ur Specific [place] 1.024 (1.001-1.035) Urine Protein Trace H (Negative) Urine Glucose (UA) 2+ H (Negative) Urine Ketones 1+ H (Negative) Urine Blood Negative (Negative) Urine Nitrite Negative (Negative) Urine Bilirubin Negative (Negative) Urine Urobilinogen 2.0 (<2.0) mg/dL Ur Leukocyte Esterase Trace H (Negative) Urine WBC 7 H (0-5) /hpf Urine Mucus Many H (None) /hpf Urine Opiates Screen Not Detected (NotDetected) Ur Oxycodone Screen Not Detected (NotDetected) Urine Methadone Screen Not Detected (NotDetected) Ur Propoxyphene Screen Not Detected (NotDetected) Ur Barbiturates Screen Not Detected (NotDetected) U Tricyclic Antidepress Not Detected (NotDetected) Ur Phencyclidine Scrn Not Detected (NotDetected) Ur Amphetamines Screen Not Detected (NotDetected) U Methamphetamines Scrn Not Detected (NotDetected) U Benzodiazepines Scrn Not Detected (NotDetected) Urine Cocaine Screen Not Detected (NotDetected) U Marijuana (THC) Screen Detected H (NotDetected) Disposition Clinical Impression: Encounter for psychological evaluation, Depression Disposition: HOME SELF-CARE Condition: Good Instructions (If sedation given, give patient instructions): Suicide Prevention (ED), Depression (ED) Additional Instructions: Please use medication as discussed. Please follow-up with family doctor in the next 2 days for blood pressure management, and follow-up. Please return to emergency room if the symptoms increase or worsen or for any other concerns. Is patient prescribed a controlled substance at d/c from ED?: No Referrals: None,Stated [Primary Care Provider] - 1-2 days [facility] - 1-2 days Time of Disposition: 19:38
[2019-01-31 19:49] VITALS: BP 143/104; PULSE 76; RESP 20; TEMP 98.2
== END 2019-01-31 19:50 | disposition home or self-care (01) ==
LOC: EC 16:56
DX: F32.9 Major depressive disorder, single episode, unspecified (principal); Z56.0 Unemployment, unspecified; F17.200 Nicotine dependence, unspecified, uncomplicated
CPT/HCPCS: 80306; 81001; 82075; 99284

== ENCOUNTER 2019-03-24 15:37 | Emergency (ER) | payer OTHER ==
[2019-03-24 15:41] VITALS: TEMP 98.6
[2019-03-24] MEDS ORDERED: ASPIRIN 81 MG PO STA (16:02)
--- NOTE | 2019-03-24 16:08 | ED ---
General Adult HPI - General Source: patient, RN notes reviewed Mode of arrival: ambulatory Limitations: no limitations <Pancho Kimble - Last Filed: 03/24/19 16:17> <Aron Alvarado - Last Filed: 03/24/19 18:49> - General Chief complaint: Recheck/Abnormal Lab/Rx Stated complaint: Chest and abd pain, high BP Time Seen by Provider: 03/24/19 16:02 - History of Present Illness Initial comments: 33-year-old male presents emergency Department chief complaint hypertension, chest discomfort. Patient states that he has tried to donate plasma last 2 days and was denied because of his blood pressure. Patient states his blood pressures when the 170s/110s. Patient states that he used to be on calcium channel montserrat to 3 years ago but has not taken any medications recent. Denies follow-up with PCP. Patient states she has slight headache, dizziness, chest pain. Patient states that symptoms started yesterday. Denies any nausea vomiting diarrhea constipation no dysuria no hematuria denies any known drug ALLERGIES. (Pancho Kimble) - Related Data Home Medications Medication Instructions Recorded Confirmed No Known Home Medications 11/23/18 01/31/19 Allergies Allergy/AdvReac Type Severity Reaction Status Date / Time No Known Drug Allergies Allergy Unknown Verified 03/24/19 15:41 Review of Systems ROS Other: All systems not noted in ROS Statement are negative. <Pancho Kimble - Last Filed: 03/24/19 16:17> ROS Other: All systems not noted in ROS Statement are negative. <Aron Alvarado - Last Filed: 03/24/19 18:49> ROS Statement: Those systems with pertinent positive or pertinent negative responses have been documented in the HPI. Past Medical History Past Medical History: No Reported History History of Any Multi-Drug Resistant Organisms: None Reported Past Surgical History: No Surgical Hx Reported Past Psychological History: Anxiety Smoking Status: Current every day smoker Past Alcohol Use History: Daily Past Drug Use History: Marijuana <Pancho Kimble - Last Filed: 03/24/19 16:17> General Exam Limitations: no limitations General appearance: alert, in no apparent distress Head exam: Present: atraumatic, normocephalic, normal inspection Eye exam: Present: normal appearance, PERRL, EOMI. Absent: scleral icterus, conjunctival injection, periorbital swelling ENT exam: Present: normal exam, normal oropharynx, mucous membranes moist Neck exam: Present: normal inspection, full ROM. Absent: tenderness, meningismus, lymphadenopathy Respiratory exam: Present: normal lung sounds bilaterally. Absent: respiratory distress, wheezes, rales, rhonchi, stridor Cardiovascular Exam: Present: normal rhythm, tachycardia, normal heart sounds. Absent: systolic murmur, diastolic murmur, rubs, gallop, clicks GI/Abdominal exam: Present: soft, normal bowel sounds. Absent: distended, tenderness, guarding, rebound, rigid Neurological exam: Present: alert, oriented X3, CN II-XII intact Skin exam: Present: warm, dry, intact, normal color. Absent: rash <Pancho Kimble M - Last Filed: 03/24/19 16:17> General appearance: alert, in no apparent distress Head exam: Present: atraumatic, normocephalic, normal inspection Eye exam: Present: normal appearance, PERRL, EOMI. Absent: scleral icterus, conjunctival injection, periorbital swelling ENT exam: Present: normal exam, mucous membranes moist Neck exam: Present: normal inspection. Absent: tenderness, meningismus, lymphadenopathy Respiratory exam: Present: normal lung sounds bilaterally. Absent: respiratory distress, wheezes, rales, rhonchi, stridor Cardiovascular Exam: Present: regular rate, normal rhythm, normal heart sounds. Absent: systolic murmur, diastolic murmur, rubs, gallop, clicks GI/Abdominal exam: Present: soft, normal bowel sounds. Absent: distended, tenderness, guarding, rebound, rigid Extremities exam: Present: normal inspection, full ROM, normal capillary refill. Absent: tenderness, pedal edema, joint swelling, calf tenderness Back exam: Present: normal inspection Neurological exam: Present: alert, oriented X3, CN II-XII intact Psychiatric exam: Present: normal affect, normal mood Skin exam: Present: warm, dry, intact, normal color. Absent: rash <Aron Alvarado B - Last Filed: 03/24/19 18:49> Course <Aron Alvarado B - Last Filed: 03/24/19 18:49> Vital Signs 05/23/19 05/23/19 05/23/19 15:39 15:52 16:00 Temperature 98.6 F Pulse Rate 127 H 102 H Respiratory 22 30 H 10 L Rate Blood Pressure 170/123 185/119 O2 Sat by Pulse 98 97 98 Oximetry 03/24/19 03/24/19 03/24/19 16:30 17:00 17:30 Temperature Pulse Rate 93 93 86 Respiratory 15 17 19 Rate Blood Pressure 185/119 156/121 160/110 O2 Sat by Pulse 97 96 97 Oximetry 03/24/19 03/24/19 03/24/19 18:00 18:11 18:30 Temperature Pulse Rate 84 84 80 Respiratory 6 L 6 L 17 Rate Blood Pressure 154/109 154/109 137/97 O2 Sat by Pulse 96 96 97 Oximetry - Reevaluation(s) Reevaluation #1: 03/24/19 18:48 Blood pressure heart rate improved with medication here in the ER (Aron Alvarado) EKG Findings - EKG Comments: EKG Findings:: EKG performed at 16:00 sinus tachycardia rate of 11 MT 140 QRS 116 QT/QTC 346/448 <Pancho Kimble - Last Filed: 03/24/19 16:17> Medical Decision Making - Lab Data Result diagrams: 03/24/19 16:15 03/24/19 16:15 - Radiology Data Radiology results: report reviewed (Chest x-rays negative for acute disease), image reviewed <Aron Alvarado - Last Filed: 03/24/19 18:49> - Medical Decision Making 30 female the ER for evaluation of elevated blood pressure 2 days, patient can give plasma unable to, patient given blood pressure control here in the ER has adequate blood pressure control will discharge home on blood pressure control medication (Aron Alvaraod) - Lab Data Lab Results 03/24/19 03/24/19 03/24/19 Range/Units 16:15 16:15 16:15 WBC 5.9 (3.8-10.6) k/uL RBC 5.09 (4.30-5.90) m/uL Hgb 16.5 (13.0-17.5) gm/dL Hct 48.0 (39.0-53.0) % MCV 94.3 (80.0-100.0) fL MCH 32.3 (25.0-35.0) pg MCHC 34.3 (31.0-37.0) g/dL RDW 11.7 (11.5-15.5) % Plt Count 195 (150-450) k/uL Neutrophils % 67 % Lymphocytes % 18 % Monocytes % 9 % Eosinophils % 2 % Basophils % 1 % Neutrophils # 4.0 (1.3-7.7) k/uL Lymphocytes # 1.1 (1.0-4.8) k/uL Monocytes # 0.6 (0-1.0) k/uL Eosinophils # 0.1 (0-0.7) k/uL Basophils # 0.0 (0-0.2) k/uL PT 10.4 (9.0-12.0) sec INR 1.0 (<1.2) APTT 23.2 (22.0-30.0) sec D-Dimer <0.17 (<0.60) mg/L FEU Sodium 138 (137-145) mmol/L Potassium 3.7 (3.5-5.1) mmol/L Chloride 105 (98-107) mmol/L Carbon Dioxide 26 (22-30) mmol/L Anion Gap 7 mmol/L BUN 9 (9-20) mg/dL Creatinine 0.60 L (0.66-1.25) mg/dL Est GFR (CKD-EPI)AfAm >90 (>60 ml/min/1.73 sqM) Est GFR (CKD-EPI)NonAf >90 (>60 ml/min/1.73 sqM) Glucose 97 (74-99) mg/dL Calcium 9.6 (8.4-10.2) mg/dL Magnesium 2.0 (1.6-2.3) mg/dL Total Bilirubin 0.6 (0.2-1.3) mg/dL AST 48 (17-59) U/L ALT 40 (21-72) U/L Alkaline Phosphatase 130 H (38-126) U/L Troponin I (0.000-0.034) ng/mL Total Protein 6.8 (6.3-8.2) g/dL Albumin 4.5 (3.5-5.0) g/dL 03/24/19 Range/Units 16:15 WBC (3.8-10.6) k/uL RBC (4.30-5.90) m/uL Hgb (13.0-17.5) gm/dL Hct (39.0-53.0) % MCV (80.0-100.0) fL MCH (25.0-35.0) pg MCHC (31.0-37.0) g/dL RDW (11.5-15.5) % Plt Count (150-450) k/uL Neutrophils % % Lymphocytes % % Monocytes % % Eosinophils % % Basophils % % Neutrophils # (1.3-7.7) k/uL Lymphocytes # (1.0-4.8) k/uL Monocytes # (0-1.0) k/uL Eosinophils # (0-0.7) k/uL Basophils # (0-0.2) k/uL PT (9.0-12.0) sec INR (<1.2) APTT (22.0-30.0) sec D-Dimer (<0.60) mg/L FEU Sodium (137-145) mmol/L Potassium (3.5-5.1) mmol/L Chloride (98-107) mmol/L Carbon Dioxide (22-30) mmol/L Anion Gap mmol/L BUN (9-20) mg/dL Creatinine (0.66-1.25) mg/dL Est GFR (CKD-EPI)AfAm (>60 ml/min/1.73 sqM) Est GFR (CKD-EPI)NonAf (>60 ml/min/1.73 sqM) Glucose (74-99) mg/dL Calcium (8.4-10.2) mg/dL Magnesium (1.6-2.3) mg/dL Total Bilirubin (0.2-1.3) mg/dL AST (17-59) U/L ALT (21-72) U/L Alkaline Phosphatase (38-126) U/L Troponin I <0.012 (0.000-0.034) ng/mL Total Protein (6.3-8.2) g/dL Albumin (3.5-5.0) g/dL Disposition <Pancho Kimble - Last Filed: 03/24/19 16:17> Is patient prescribed a controlled substance at d/c from ED?: No <Aron Alvarado - Last Filed: 03/24/19 18:49> Clinical Impression: Hypertension Disposition: HOME SELF-CARE Condition: Good Instructions (If sedation given, give patient instructions): Hypertension (ED) Referrals: None,Stated [Primary Care Provider] - 1-2 days
[2019-03-24] MEDS ORDERED: LABETALOL SYRINGE 5 MG/ML IVP STA ×2 (16:17→17:29)
[2019-03-24 16:25] LABS: Basophils % (A) 1 %; Eosinophils # (A) 0.1 k/uL (0-0.7); Eosinophils % (A) 2 %; HGB 16.5 gm/dL (13.0-17.5); Lymphocytes # (A) 1.1 k/uL (1.0-4.8); Lymphocytes % (A) 18 %; MCH 32.3 pg (25.0-35.0); MCHC 34.3 g/dL (31.0-37.0); MCV 94.3 fL (80.0-100.0); Monocytes # (A) 0.6 k/uL (0-1.0); Monocytes % (A) 9 %; Neutrophils % (A) 67 %; Platelet Count 195 k/uL (150-450); RBC 5.09 m/uL (4.30-5.90); RDW 11.7 % (11.5-15.5); WBC 5.9 k/uL (3.8-10.6)
[2019-03-24 16:38] LABS: ALT 40 U/L (21-72); AST 48 U/L (17-59); Albumin 4.5 g/dL (3.5-5.0); Alkaline Phosphatase 130 U/L (38-126); Anion Gap 7 mmol/L; Blood Urea Nitrogen 9 mg/dL (9-20); Calcium 9.6 mg/dL (8.4-10.2); Carbon Dioxide 26 mmol/L (22-30); Chloride 105 mmol/L (98-107); Glucose 97 mg/dL (74-99); Potassium 3.7 mmol/L (3.5-5.1); Sodium 138 mmol/L (137-145); Total Bilirubin 0.6 mg/dL (0.2-1.3); Total Protein 6.8 g/dL (6.3-8.2)
[2019-03-24 16:44] LABS: D-Dimer <0.17 mg/L FEU (<0.60); Partial Thromboplastin Time 23.2 sec (22.0-30.0); Prothrombin Time 10.4 sec (9.0-12.0)
[2019-03-24] MEDS ORDERED: MORPHINE SULFATE 4 MG/ML SYRINGE IVP STA (17:29)
[2019-03-24] MEDS ORDERED: DIAZEPAM 5 MG/ML 2 ML INJ IVP STA (17:30)
--- NOTE | 2019-03-24 18:18 | XR ---
EXAMINATION: XR chest 2V DATE AND TIME: 03/24/2019 5:17 PM CLINICAL INDICATION: PHH; Chest Pain TECHNIQUE: Departmental protocol COMPARISON: None FINDINGS: The lungs are clear. The pleural spaces are negative. The cardiac silhouette is not enlarged. The remainder of the mediastinal silhouette is unremarkable. The skeletal structures and soft tissues are negative for acute findings. IMPRESSION: NO ACUTE PROCESS.
--- NOTE | 2019-03-24 19:25 | CT ---
EXAMINATION: CT brain wo con DATE AND TIME: 03/24/2019 7:07 PM CLINICAL INDICATION: PHH; pain TECHNIQUE: Standard departmental protocol.; 1079.4; COMPARISON: None. FINDINGS: The calvarium is intact. There is no intracranial hemorrhage. There is no intracranial mass or mass effect. No definite new intra-axial or extra-axial attenuation defect. The paranasal sinuses, middle ear cavities, and mastoid sinus air cells are clear. The orbits are unremarkable. IMPRESSION: NO ACUTE PROCESS.
[2019-03-24 20:28] VITALS: BP 145/102; PULSE 88; RESP 16
== END 2019-03-24 20:29 | disposition home or self-care (01) ==
LOC: EC 15:37
DX: I10 Essential (primary) hypertension (principal); R00.0 Tachycardia, unspecified; R07.89 Other chest pain; R51 Headache; R42 Dizziness and giddiness; F17.200 Nicotine dependence, unspecified, uncomplicated
CPT/HCPCS: 36415; 93005; 85379; 80053; 83735; 84484; 85025; 85610; 85730; 71046; 70450; 99285; 96374; 96375 ×2; 96376; J2270; J3360

== ENCOUNTER → 2019-05-11 | Outpatient (CLI) | payer OTHER ==
--- NOTE | 2019-05-11 12:36 | P.STRESS ---
- Stress Test Note Stress Test Results/Findings: Exam Performed: stress echo exercise Exam Date: 05/11/19 Reason for Exam: CHEST PAIN Height: 5 ft 10 in Weight: 63.503 kg Protocol: DSE Stage: 4 Duration of Exercise: 11:00 Resting Heart Rate: 88 Resting Blood Pressure: 103/50 Maximum Achieved Heart Rate: 160 Maximum Achieved Blood Pressure: 159/59 85% PMHR: 159 100% PMHR: 187 METS: 12.1 Technologist Comment: Stress Test Results/Findings: This is a 32-year-old gentleman being evaluated for symptoms of chest pain and palpitations. Patient has history of hypertension, family history of ischemic heart disease and smoking. Stress data: Baseline EKG showed sinus rhythm with normal [place] interval and QRS duration. Blood pressure at rest is 103/50, pulse rate of 88. Patient walked on the Rm protocol for 11 minutes achieving a maximal rate of 160 with blood pressure 159/59. Patient is achieved 85% predicted heart rate. EKGs taken during and after exercise did not reveal any changes of ischemia. Patient had some atypical chest pain on the right side. No arrhythmias detected. No Echo data: Baseline echo images showed normal wall motion and thickening. Exercise echo images showed augmentation of the wall motion and thickening in all segments. Final impression: #1. Negative stress test #2. Negative stress echo
--- NOTE | 2019-05-12 13:15 | ECHOS ---
Stress Test Results/Findings: Exam Performed: stress echo exercise Exam Date: 05/11/19 Reason for Exam: CHEST PAIN Height: 5 ft 10 in Weight: 63.503 kg Protocol: DSE Stage: 4 Duration of Exercise: 11:00 Resting Heart Rate: 88 Resting Blood Pressure: 103/50 Maximum Achieved Heart Rate: 160 Maximum Achieved Blood Pressure: 159/59 85% PMHR: 159 100% PMHR: 187 METS: 12.1 Technologist Comment: Stress Test Results/Findings: This is a 32-year-old gentleman being evaluated for symptoms of chest pain and palpitations. Patient has history of hypertension, family history of ischemic heart disease and smoking. Stress data: Baseline EKG showed sinus rhythm with normal [place] interval and QRS duration. Blood pressure at rest is 103/50, pulse rate of 88. Patient walked on the Rm protocol for 11 minutes achieving a maximal rate of 160 with blood pressure 159/59. Patient is achieved 85% predicted heart rate. EKGs taken during and after exercise did not reveal any changes of ischemia. Patient had some atypical chest pain on the right side. No arrhythmias detected. No Echo data: Baseline echo images showed normal wall motion and thickening. Exercise echo images showed augmentation of the wall motion and thickening in all segments. Final impression: #1. Negative stress test #2. Negative stress echo MTDD
== END | disposition home or self-care (01) ==
LOC: RADNMMAIN 09:51
PROVIDERS: ATTEND Family Medicine
DX: R07.9 Chest pain, unspecified (principal)
CPT/HCPCS: 93351

== ENCOUNTER 2019-06-21 19:20 | Emergency (ER) | payer OTHER ==
[2019-06-21] MEDS ORDERED: SODIUM CHLORIDE 0.9% 1,000 ML IV STA ×2 (20:10)
[2019-06-21 20:13] LABS: Cocaine Screen,Urine Detected (NotDetected); Opiate Screen,Urine Not Detected (NotDetected); Phencyclidine Screen,Urine Not Detected (NotDetected); Urn Cannabinoid Scrn Detected (NotDetected)
[2019-06-21 20:14] LABS: Amphetamine Screen,Urine Not Detected (NotDetected); Barbiturate Screen,Urine Not Detected (NotDetected); Benzodiazepines Screen,Urine Not Detected (NotDetected); Methadone Screen, Urine Not Detected (NotDetected); Oxycodone Screen, Urine Not Detected (NotDetected); Tricyclic Antidepressant,Urine Detected (NotDetected)
--- NOTE | 2019-06-21 20:38 | ED ---
Psych HPI - General Chief Complaint: Psychiatric Symptoms Stated Complaint: Mental health Source: patient Mode of arrival: ambulatory - History of Present Illness Initial Comments: This 33-year-old white male presents with a complaint of some depression with suicidal ideations. He apparently has been going through divorce for the past 2 months. He states that today it became severe to the point where he wanted to go and jump out in front of traffic and kill himself. He does relate also that today he smoked marijuana, drink alcohol, and he utilizes cocaine. He states that he does drink on a daily basis usually between a pint and a fifth and does consider himself an alcoholic. He states that he does not normally utilize cocaine. He does present tachycardic and states that his normal heart rate is approximately 108. He does have a long-standing history of depression and anxiety. He denies any recent definitive attempts. He denies any other complaints or modifying factors. - Related Data Home Medications Medication Instructions Recorded Confirmed Chlorthalidone 25 mg PO DAILY 06/21/19 06/21/19 clonazePAM [KlonoPIN] 2 mg PO TID 06/21/19 06/21/19 traZODone HCL [Desyrel] 100 mg PO HS 06/21/19 06/21/19 Previous Rx's Medication Instructions Recorded Lisinopril-Hctz 10-12.5 mg 1 tab PO DAILY #30 tab 03/24/19 [Zestoretic 10-12.5] Allergies Allergy/AdvReac Type Severity Reaction Status Date / Time No Known Drug Allergies Allergy Unknown Verified 06/21/19 19:39 Review of Systems ROS Statement: Those systems with pertinent positive or pertinent negative responses have been documented in the HPI. ROS Other: All systems not noted in ROS Statement are negative. Past Medical History Past Medical History: No Reported History History of Any Multi-Drug Resistant Organisms: None Reported Past Surgical History: No Surgical Hx Reported Past Psychological History: Anxiety Smoking Status: Current every day smoker Past Alcohol Use History: Daily Past Drug Use History: Cocaine, Marijuana General Exam - General Exam Comments Initial Comments: GENERAL: The patient is well nourished and well hydrated. VITAL SIGNS: Heart rate, blood pressure, respiratory rate reviewed as recorded in nurse's notes. EYES: Pupils are round and reactive. Extraocular movements are intact. No conjunctival / lid redness or swelling. ENT: No external evidence of injury, swelling, or ecchymosis. Airway is patent. Throat is clear. NECK: Nontender. No swelling or evidence of injury. No subcutaneous emphysema. Trachea is midline. No thyroid mass. HEART: Tachycardic heart rate. Good peripheral pulses. LUNGS/CHEST: Breath sounds clear and equal bilaterally. No rales, rhonchi, or wheezes. No ecchymosis, subcutaneous emphysema, or tenderness. ABDOMEN: Abdomen soft without tenderness. No palpable masses or organomegaly. No peritoneal signs. No abdominal wall swelling or ecchymosis. EXTREMITIES: No extremity tenderness. Normal muscle tone and function. No th oracolumbar tenderness. NEUROLOGIC: Sensation is grossly intact. Cranial nerve exam reveals face is symmetrical, tongue is midline, speech is clear. SKIN: No abrasions or ecchymosis is noted. No induration or masses noted. PSYCHIATRIC: Alert and oriented. Appropriate behavior and judgment. Limitations: no limitations Course Vital Signs 06/21/19 06/21/19 06/22/19 19:29 21:02 00:15 Temperature 98.9 F 98.6 F 98.6 F Pulse Rate 136 H 120 H 100 Respiratory 20 18 18 Rate Blood Pressure 116/68 122/86 106/71 O2 Sat by Pulse 96 98 100 Oximetry Medical Decision Making - Medical Decision Making The patient was seen and examined. All diagnostics were reviewed. His initial heart rate is approximately 135 and therefore additional workup is initiated. IV is established and he is hydrated. He does relate that he drank a fair amount of alcohol but does not appear to be severely intoxicated clinically. His alcohol came back at 185. His other labs are overall fairly unremarkable. Drug screen has multiple positive injuries. He will require additional sobering as psychiatry will not evaluate the patient until the alcohol has worn off. He does request a dose of his Klonopin and 1 mg is given. He does complain of some diffuse myalgias and receives 30 mg of Toradol IV. It does not appear as though he will be sober for a while so care will be passed off to oncoming physician. We will await a psychiatric consult as well. - Lab Data Result diagrams: 06/21/19 20:28 06/21/19 20:28 Lab Results 06/21/19 06/21/19 06/21/19 Range/Units 18:42 18:42 20:28 WBC (3.8-10.6) k/uL RBC (4.30-5.90) m/uL Hgb (13.0-17.5) gm/dL Hct (39.0-53.0) % MCV (80.0-100.0) fL MCH (25.0-35.0) pg MCHC (31.0-37.0) g/dL RDW (11.5-15.5) % Plt Count (150-450) k/uL Neutrophils % % Lymphocytes % % Monocytes % % Eosinophils % % Basophils % % Neutrophils # (1.3-7.7) k/uL Lymphocytes # (1.0-4.8) k/uL Monocytes # (0-1.0) k/uL Eosinophils # (0-0.7) k/uL Basophils # (0-0.2) k/uL Sodium 141 (137-145) mmol/L Potassium 3.7 (3.5-5.1) mmol/L Chloride 108 H (98-107) mmol/L Carbon Dioxide 22 (22-30) mmol/L Anion Gap 11 mmol/L BUN 8 L (9-20) mg/dL Creatinine 0.73 (0.66-1.25) mg/dL Est GFR (CKD-EPI)AfAm >90 (>60 ml/min/1.73 sqM) Est GFR (CKD-EPI)NonAf >90 (>60 ml/min/1.73 sqM) Glucose 128 H (74-99) mg/dL Calcium 8.6 (8.4-10.2) mg/dL Urine Color Yellow Urine Appearance Clear (Clear) Urine pH 6.5 (5.0-8.0) Ur Specific [place] 1.011 (1.001-1.035) Urine Protein Negative (Negative) Urine Glucose (UA) Negative (Negative) Urine Ketones Negative (Negative) Urine Blood Negative (Negative) Urine Nitrite Negative (Negative) Urine Bilirubin Negative (Negative) Urine Urobilinogen <2.0 (<2.0) mg/dL Ur Leukocyte Esterase Negative (Negative) Salicylates <1.0 mg/dL Urine Opiates Screen Not Detected (NotDetected) Ur Oxycodone Screen Not Detected (NotDetected) Urine Methadone Screen Not Detected (NotDetected) Ur Propoxyphene Screen Not Detected (NotDetected) Acetaminophen <10.0 ug/mL Ur Barbiturates Screen Not Detected (NotDetected) U Tricyclic Antidepress Detected H (NotDetected) Ur Phencyclidine Scrn Not Detected (NotDetected) Ur Amphetamines Screen Not Detected (NotDetected) U Methamphetamines Scrn Not Detected (NotDetected) U Benzodiazepines Scrn Not Detected (NotDetected) Urine Cocaine Screen Detected H (NotDetected) U Marijuana (THC) Screen Detected H (NotDetected) Serum Alcohol 185 mg/dL 06/21/19 Range/Units 20:28 WBC 7.6 (3.8-10.6) k/uL RBC 4.34 (4.30-5.90) m/uL Hgb 14.1 (13.0-17.5) gm/dL Hct 42.0 (39.0-53.0) % MCV 96.6 (80.0-100.0) fL MCH 32.4 (25.0-35.0) pg MCHC 33.6 (31.0-37.0) g/dL RDW 12.0 (11.5-15.5) % Plt Count 213 (150-450) k/uL Neutrophils % 59 % Lymphocytes % 25 % Monocytes % 7 % Eosinophils % 6 % Basophils % 1 % Neutrophils # 4.5 (1.3-7.7) k/uL Lymphocytes # 1.9 (1.0-4.8) k/uL Monocytes # 0.5 (0-1.0) k/uL Eosinophils # 0.5 (0-0.7) k/uL Basophils # 0.1 (0-0.2) k/uL Sodium (137-145) mmol/L Potassium (3.5-5.1) mmol/L Chloride (98-107) mmol/L Carbon Dioxide (22-30) mmol/L Anion Gap mmol/L BUN (9-20) mg/dL Creatinine (0.66-1.25) mg/dL Est GFR (CKD-EPI)AfAm (>60 ml/min/1.73 sqM) Est GFR (CKD-EPI)NonAf (>60 ml/min/1.73 sqM) Glucose (74-99) mg/dL Calcium (8.4-10.2) mg/dL Urine Color Urine Appearance (Clear) Urine pH (5.0-8.0) Ur Specific [place] (1.001-1.035) Urine Protein (Negative) Urine Glucose (UA) (Negative) Urine Ketones (Negative) Urine Blood (Negative) Urine Nitrite (Negative) Urine Bilirubin (Negative) Urine Urobilinogen (<2.0) mg/dL Ur Leukocyte Esterase (Negative) Salicylates mg/dL Urine Opiates Screen (NotDetected) Ur Oxycodone Screen (NotDetected) Urine Methadone Screen (NotDetected) Ur Propoxyphene Screen (NotDetected) Acetaminophen ug/mL Ur Barbiturates Screen (NotDetected) U Tricyclic Antidepress (NotDetected) Ur Phencyclidine Scrn (NotDetected) Ur Amphetamines Screen (NotDetected) U Methamphetamines Scrn (NotDetected) U Benzodiazepines Scrn (NotDetected) Urine Cocaine Screen (NotDetected) U Marijuana (THC) Screen (NotDetected) Serum Alcohol mg/dL Disposition Clinical Impression: Sinus tachycardia, Depression, Suicidal ideation, Alcohol intoxication, Alcohol abuse, Cocaine abuse, Marijuana abuse Condition: Fair Is patient prescribed a controlled substance at d/c from ED?: No Referrals: Lucas Santo MD [Primary Care Provider] - 1-2 days
[2019-06-21 20:53] LABS: Appearance,Urine Clear (Clear); Bilirubin,Urine Negative (Negative); Blood,Urine Negative (Negative); Color,Urine Yellow; Glucose,Urine (UA) Negative (Negative); Ketones,Urine Negative (Negative); Leukocyte Esterase,Urine Negative (Negative); Nitrite,Urine Negative (Negative); PH, Urine 6.5 (5.0-8.0); Protein,Urine Negative (Negative); Specific Gravity,Urine 1.011 (1.001-1.035); Urobilinogen,Urine <2.0 mg/dL (<2.0)
[2019-06-21 20:59] LABS: Basophils # (A) 0.1 k/uL (0-0.2); Basophils % (A) 1 %; Eosinophils # (A) 0.5 k/uL (0-0.7); Eosinophils % (A) 6 %; HGB 14.1 gm/dL (13.0-17.5); Lymphocytes # (A) 1.9 k/uL (1.0-4.8); Lymphocytes % (A) 25 %; MCH 32.4 pg (25.0-35.0); MCHC 33.6 g/dL (31.0-37.0); MCV 96.6 fL (80.0-100.0); Mean Platelet Volume 6.9; Monocytes # (A) 0.5 k/uL (0-1.0); Monocytes % (A) 7 %; Neutrophils # (A) 4.5 k/uL (1.3-7.7); Neutrophils % (A) 59 %; Platelet Count 213 k/uL (150-450); RBC 4.34 m/uL (4.30-5.90); WBC 7.6 k/uL (3.8-10.6)
[2019-06-21 21:03] VITALS: RESP 18
[2019-06-21 21:09] LABS: Acetaminophen <10.0 ug/mL; African American GFR (CKD) >90 (>60 ml/min/1.73 sqM); Anion Gap 11 mmol/L; Blood Urea Nitrogen 8 mg/dL (9-20); Calcium 8.6 mg/dL (8.4-10.2); Carbon Dioxide 22 mmol/L (22-30); Chloride 108 mmol/L (98-107); Glucose 128 mg/dL (74-99); Potassium 3.7 mmol/L (3.5-5.1); Salicylate <1.0 mg/dL; Sodium 141 mmol/L (137-145)
[2019-06-21 21:12] LABS: Alcohol 185 mg/dL
[2019-06-21] MEDS ORDERED: clonazePAM 1 MG TAB PO STA (21:41)
[2019-06-22] MEDS ORDERED: KETOROLAC 30 MG/ML 1 ML VIAL IVP STA (00:03)
[2019-06-22] MEDS ORDERED: IBUPROFEN 600 MG TAB PO STA (02:09)
[2019-06-22 06:48] VITALS: BP 113/73; PULSE 83; TEMP 97.8
[2019-06-22] MEDS ORDERED: clonazePAM 1 MG TAB PO STA (08:38)
[2019-06-22] MEDS ORDERED: LISINOPRIL-HCTZ 10-12.5 MG 1 EACH TAB PO STA (08:38)
[2019-06-22] MEDS ORDERED: NICOTINE 14MG/24HR PATCH TRANSDERM STA (08:53)
== END 2019-06-22 10:30 ==
LOC: EC 19:20
DX: F32.9 Major depressive disorder, single episode, unspecified (principal); F10.129 Alcohol abuse with intoxication, unspecified; F14.10 Cocaine abuse, uncomplicated; F12.10 Cannabis abuse, uncomplicated; R00.0 Tachycardia, unspecified; R45.851 Suicidal ideations; M79.10 Myalgia, unspecified site; F41.9 Anxiety disorder, unspecified; F17.200 Nicotine dependence, unspecified, uncomplicated; Z79.899 Other long term (current) drug therapy
CPT/HCPCS: 99285; 96374; 82075; 36415; 93005; 80048; 85025; 81003; 80306; 83520; 96361 ×14; G0480 ×2; S4990; J1885; 80320; 80329

== ENCOUNTER 2020-01-08 15:45 | Observation (INO) | payer BC, OTHER ==
[2020-01-08] MEDS ORDERED: CLINDAMYCIN 600 MG in DEXTROSE 5% IN WATER 50 ML IVPB STA ×2 (16:10)
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
[2020-01-08 16:51] LABS: Basophils % (A) 0 %; Eosinophils # (A) 0.1 k/uL (0-0.7); Eosinophils % (A) 1 %; HCT 54.2 % (39.0-53.0); HGB 18.2 gm/dL (13.0-17.5); Lymphocytes # (A) 1.6 k/uL (1.0-4.8); Lymphocytes % (A) 10 %; MCH 31.8 pg (25.0-35.0); MCHC 33.6 g/dL (31.0-37.0); MCV 94.7 fL (80.0-100.0); Mean Platelet Volume 7.2; Monocytes % (A) 6 %; Neutrophils # (A) 12.1 k/uL (1.3-7.7); Neutrophils % (A) 81 %; Platelet Count 268 k/uL (150-450); RBC 5.72 m/uL (4.30-5.90); WBC 14.9 k/uL (3.8-10.6)
[2020-01-08] MEDS ORDERED: LEVOFLOXACIN 500MG-D5W PMX 500 MG in DEXTROSE/WATER 1 100ML.BAG IVPB STA (16:58)
[2020-01-08 17:00] LABS: ALT 43 U/L (4-49); AST 66 U/L (17-59); African American GFR (CKD) >90 (>60 ml/min/1.73 sqM); Albumin 4.9 g/dL (3.5-5.0); Alkaline Phosphatase 115 U/L (38-126); Anion Gap 11 mmol/L; Blood Urea Nitrogen 10 mg/dL (9-20); Calcium 9.6 mg/dL (8.4-10.2); Carbon Dioxide 25 mmol/L (22-30); Chloride 103 mmol/L (98-107); Glucose 94 mg/dL (74-99); Non-African American GFR(CKD) >90 (>60 ml/min/1.73 sqM); Potassium 3.9 mmol/L (3.5-5.1); Sodium 139 mmol/L (137-145); Total Protein 7.4 g/dL (6.3-8.2)
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
--- NOTE | 2020-01-08 17:01 | XR ---
EXAMINATION TYPE: XR wrist complete RT DATE OF EXAM: 01/08/2020 COMPARISON: NONE HISTORY: Pain TECHNIQUE: 4 views FINDINGS: Carpal bones are intact. I see no fracture nor dislocation. Joint spaces are normal. IMPRESSION: Negative right wrist exam.
--- NOTE | 2020-01-08 17:04 | XR ---
EXAMINATION TYPE: XR ribs LT w pa chest xray DATE OF EXAM: 01/08/2020 COMPARISON: 03/24/2019 HISTORY: Chest pain TECHNIQUE: 5 views FINDINGS: Heart and mediastinum are normal. Lungs are clear. Diaphragm is normal. Pulmonary vasculari ty is normal. The left ribs appear intact. There is no pleural effusion or pneumothorax. I see no rib fracture. IMPRESSION: Normal chest. Normal left ribs.
--- NOTE | 2020-01-08 17:05 | XR ---
EXAMINATION TYPE: XR hand complete RT DATE OF EXAM: 01/08/2020 COMPARISON: NONE HISTORY: Hand and wrist pain TECHNIQUE: 3 views FINDINGS: Metacarpals are intact. I see no fracture nor dislocation. Joint spaces are normal. IMPRESSION: Negative right hand exam.
[2020-01-08] MEDS ORDERED: NALOXONE 0.4 MG/ML 1 ML VIAL IV PRN (17:06)
[2020-01-08] MEDS ORDERED: MORPHINE SULFATE 2 MG/ML SYRINGE IVP STA (17:09)
[2020-01-08] MEDS: SODIUM CHLORIDE 0.9% 1,000 ML IV SCH (17:30)
[2020-01-08] MEDS ORDERED: ACETAMINOPHEN TAB 325 MG TAB PO PRN (17:32)
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
[2020-01-08] MEDS ORDERED: AMPICILLIN-SULBACTAM 1.5 GM in SODIUM CHLORIDE 0.9% 50 ML IVPB SCH (17:45)
[2020-01-08] MEDS: NICOTINE 21MG/24HR PATCH TRANSDERM SCH (19:17)
[2020-01-08] MEDS: AMPICILLIN-SULBACTAM 1.5 GM in SODIUM CHLORIDE 0.9% 50 ML IVPB SCH (19:17)
[2020-01-08] MEDS: HYDROcodone/APAP 5-325MG 1 EACH TAB PO PRN ×2 (19:21→23:34)
[2020-01-08] MEDS: KETOROLAC 30 MG/ML 1 ML VIAL IVP PRN (19:22)
[2020-01-09] MEDS: KETOROLAC 30 MG/ML 1 ML VIAL IVP PRN ×3 (01:56→17:41)
[2020-01-09] MEDS: AMPICILLIN-SULBACTAM 1.5 GM in SODIUM CHLORIDE 0.9% 50 ML IVPB SCH ×3 (01:56→17:41)
[2020-01-09] MEDS: SODIUM CHLORIDE 0.9% 1,000 ML IV SCH (05:20)
[2020-01-09] MEDS: HYDROcodone/APAP 5-325MG 1 EACH TAB PO PRN ×3 (06:00→15:16)
[2020-01-09 08:11] LABS: Basophils % (A) 1 %; Eosinophils # (A) 0.2 k/uL (0-0.7); Eosinophils % (A) 3 %; HCT 46.9 % (39.0-53.0); HGB 15.7 gm/dL (13.0-17.5); Lymphocytes # (A) 1.7 k/uL (1.0-4.8); Lymphocytes % (A) 21 %; MCH 31.9 pg (25.0-35.0); MCHC 33.5 g/dL (31.0-37.0); MCV 95.1 fL (80.0-100.0); Mean Platelet Volume 7.6; Monocytes # (A) 0.7 k/uL (0-1.0); Monocytes % (A) 9 %; Neutrophils # (A) 5.3 k/uL (1.3-7.7); Neutrophils % (A) 65 %; Platelet Count 212 k/uL (150-450); RBC 4.93 m/uL (4.30-5.90); RDW 11.9 % (11.5-15.5); WBC 8.1 k/uL (3.8-10.6)
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
[2020-01-09 08:23] LABS: ALT 30 U/L (4-49); AST 47 U/L (17-59); African American GFR (CKD) >90 (>60 ml/min/1.73 sqM); Albumin 3.4 g/dL (3.5-5.0); Alkaline Phosphatase 85 U/L (38-126); Anion Gap 6 mmol/L; Blood Urea Nitrogen 16 mg/dL (9-20); Calcium 8.6 mg/dL (8.4-10.2); Carbon Dioxide 24 mmol/L (22-30); Chloride 106 mmol/L (98-107); Glucose 100 mg/dL (74-99); Non-African American GFR(CKD) >90 (>60 ml/min/1.73 sqM); Potassium 3.8 mmol/L (3.5-5.1); Sodium 136 mmol/L (137-145); Total Bilirubin 1.5 mg/dL (0.2-1.3); Total Protein 5.6 g/dL (6.3-8.2)
[2020-01-09] MEDS: NICOTINE 21MG/24HR PATCH TRANSDERM SCH (08:53)
[2020-01-09 18:05] VITALS: BP 148/92; PULSE 76; RESP 16; TEMP 99.1
== END 2020-01-09 18:33 | disposition left against medical advice (07) ==
LOC: EC 15:45 → 4SSUR 16:59
PROVIDERS: ADMIT Internal Medicine; ATTEND Internal Medicine
DX: L03.113 Cellulitis of right upper limb (principal); S61.451A Open bite of right hand, initial encounter; D72.829 Elevated white blood cell count, unspecified; R51 Headache; F17.210 Nicotine dependence, cigarettes, uncomplicated; F41.9 Anxiety disorder, unspecified; I10 Essential (primary) hypertension; R74.0 Nonspecific elevation of levels of transaminase and lactic acid dehydrogenase [LDH]; Z79.899 Other long term (current) drug therapy; Y04.1XXA Assault by human bite, initial encounter
CPT/HCPCS: 96376; 96366; 96367 ×2; 96375 ×2; 96365; 99285; 36415; 80053 ×2; 83605; 85025 ×2; 87040; 70150; 71101; 73110; 73130; 72125; 70450; G0378 ×2; S4990; J1956; J1885 ×2; J2270; J0295 ×2

== ENCOUNTER 2021-06-22 09:52 | Emergency (ER) | payer BC, OTHER ==
[2021-06-22] MEDS ORDERED: KETOROLAC 15 MG/ML 1 ML VIAL IVP STA (10:20)
[2021-06-22] MEDS ORDERED: SODIUM CHLORIDE 0.9% 1,000 ML IV STA (10:20)
--- NOTE | 2021-06-22 10:23 | ED ---
Abdominal Pain HPI - General Chief Complaint: Abdominal Pain Stated Complaint: possible hernia Time Seen by Provider: 06/22/21 10:10 Source: patient Mode of arrival: ambulatory Limitations: no limitations - History of Present Illness Initial Comments: 35-year-old male presents to emergency Department with a chief complaint of abdominal pain. Patient reports woke up this morning with a sudden onset of lower abdominal pain. Patient reports a "bulge" and lower abdominal region that does not seem to be exacerbated whenever he is in a standing versus lying position. States there is also some pain on the right lower quadrant region. Course the pain is sharp in nature without any radiation. Denies any associated nausea vomiting or diarrhea. Denies any fevers or chills. No previous surgical abdominal history. Denies any obstructive or infectious urinary symptoms. Denies any penile discharge, testicular swelling or redness. - Related Data Home Medications Medication Instructions Recorded Confirmed No Known Home Medications 06/22/21 06/22/21 Allergies Allergy/AdvReac Type Severity Reaction Status Date / Time No Known Drug Allergies Allergy Unknown Verified 06/22/21 11:20 Review of Systems ROS Statement: Those systems with pertinent positive or pertinent negative responses have been documented in the HPI. ROS Other: All systems not noted in ROS Statement are negative. Past Medical History Past Medical History: No Reported History History of Any Multi-Drug Resistant Organisms: None Reported Past Surgical History: No Surgical Hx Reported Past Anesthesia/Blood Transfusion Reactions: No Reported Reaction Past Psychological History: Anxiety Smoking Status: Current every day smoker Past Alcohol Use History: Daily Past Drug Use History: Cocaine, Marijuana - Past Family History Father Family Medical History: No Reported History General Exam Limitations: no limitations General appearance: alert, in no apparent distress Head exam: Present: atraumatic, normocephalic, normal inspection Eye exam: Present: normal appearance, PERRL, EOMI Pupils: Present: normal accommodation ENT exam: Present: normal exam, normal oropharynx, mucous membranes moist Neck exam: Present: normal inspection, full ROM. Absent: tenderness, lymphadenopathy Respiratory exam: Present: normal lung sounds bilaterally. Absent: respiratory distress, wheezes, rales Cardiovascular Exam: Present: regular rate, normal rhythm, normal heart sounds. Absent: systolic murmur GI/Abdominal exam: Present: soft, tenderness (Lower abdominal tenderness. Positive McBurney point tenderness.). Absent: distended, guarding, rebound exam: Present: other (Palpable right inguinal lymph node) Extremities exam: Present: normal inspection, full ROM, normal capillary refill. Absent: tenderness Back exam: Present: normal inspection, full ROM. Absent: tenderness, CVA tenderness (R), CVA tenderness (L), muscle spasm, paraspinal tenderness, vertebral tenderness Neurological exam: Present: alert, oriented X3 Psychiatric exam: Present: normal affect, normal mood Skin exam: Present: warm, dry, intact, normal color Course Vital Signs 06/22/21 06/22/21 10:04 12:44 Temperature 97.5 F L Pulse Rate 102 H 67 Respiratory 18 16 Rate Blood Pressure 156/67 125/84 O2 Sat by Pulse 98 98 Oximetry Medical Decision Making - Medical Decision Making 35-year-old male presented emergency, the chief complaint abdominal pain. On physical examination lower abdominal tenderness. examination is unremarkable. Patient does drink multiple beers per day. This could explain the elevated lipase of 689. Patient was given IV fluids, analgesia. CT of the abdomen and pelvis obtained shows enteritis. CBC CMP UA otherwise unremarkable. Post void residual volume of 160. Patient was advised to have a clear liquid diet. Advised PCP follow-up. Advised to stop drinking. Case discussed with physician. - Lab Data Result diagrams: 06/22/21 10:58 06/22/21 10:58 Lab Results 06/22/21 06/22/21 06/22/21 Range/Units 10:58 10:58 10:58 WBC 5.9 (3.8-10.6) k/uL RBC 4.98 (4.30-5.90) m/uL Hgb 17.4 (13.0-17.5) gm/dL Hct 51.2 (39.0-53.0) % MCV 102.8 H (80.0-100.0) fL MCH 35.0 (25.0-35.0) pg MCHC 34.0 (31.0-37.0) g/dL RDW 12.0 (11.5-15.5) % Plt Count 206 (150-450) k/uL MPV 7.5 Neutrophils % 48 % Lymphocytes % 26 % Monocytes % 6 % Eosinophils % 14 % Basophils % 2 % Neutrophils # 2.9 (1.3-7.7) k/uL Lymphocytes # 1.5 (1.0-4.8) k/uL Monocytes # 0.4 (0-1.0) k/uL Eosinophils # 0.8 H (0-0.7) k/uL Basophils # 0.1 (0-0.2) k/uL Macrocytosis Slight Sodium 144 (137-145) mmol/L Potassium 4.7 (3.5-5.1) mmol/L Chloride 108 H (98-107) mmol/L Carbon Dioxide 26 (22-30) mmol/L Anion Gap 10 mmol/L BUN 9 (9-20) mg/dL Creatinine 0.82 (0.66-1.25) mg/dL Est GFR (CKD-EPI)AfAm >90 (>60 ml/min/1.73 sqM) Est GFR (CKD-EPI)NonAf >90 (>60 ml/min/1.73 sqM) Glucose 94 (74-99) mg/dL Plasma Lactic Acid Suhail (0.7-2.0) mmol/L Calcium 10.0 (8.4-10.2) mg/dL Total Bilirubin 0.5 (0.2-1.3) mg/dL AST 47 (17-59) U/L ALT 34 (4-49) U/L Alkaline Phosphatase 150 H (38-126) U/L Total Protein 7.5 (6.3-8.2) g/dL Albumin 5.1 H (3.5-5.0) g/dL Lipase 684 H (23-300) U/L Urine Color Light Yellow Urine Appearance Clear (Clear) Urine pH 5.0 (5.0-8.0) Ur Specific [place] 1.004 (1.001-1.035) Urine Protein Negative (Negative) Urine Glucose (UA) Negative (Negative) Urine Ketones Negative (Negative) Urine Blood Negative (Negative) Urine Nitrite Negative (Negative) Urine Bilirubin Negative (Negative) Urine Urobilinogen <2.0 (<2.0) mg/dL Ur Leukocyte Esterase Negative (Negative) 06/22/21 Range/Units 10:58 WBC (3.8-10.6) k/uL RBC (4.30-5.90) m/uL Hgb (13.0-17.5) gm/dL Hct (39.0-53.0) % MCV (80.0-100.0) fL MCH (25.0-35.0) pg MCHC (31.0-37.0) g/dL RDW (11.5-15.5) % Plt Count (150-450) k/uL MPV Neutrophils % % Lymphocytes % % Monocytes % % Eosinophils % % Basophils % % Neutrophils # (1.3-7.7) k/uL Lymphocytes # (1.0-4.8) k/uL Monocytes # (0-1.0) k/uL Eosinophils # (0-0.7) k/uL Basophils # (0-0.2) k/uL Macrocytosis Sodium (137-145) mmol/L Potassium (3.5-5.1) mmol/L Chloride (98-107) mmol/L Carbon Dioxide (22-30) mmol/L Anion Gap mmol/L BUN (9-20) mg/dL Creatinine (0.66-1.25) mg/dL Est GFR (CKD-EPI)AfAm (>60 ml/min/1.73 sqM) Est GFR (CKD-EPI)NonAf (>60 ml/min/1.73 sqM) Glucose (74-99) mg/dL Plasma Lactic Acid Suhail 1.2 (0.7-2.0) mmol/L Calcium (8.4-10.2) mg/dL Total Bilirubin (0.2-1.3) mg/dL AST (17-59) U/L ALT (4-49) U/L Alkaline Phosphatase (38-126) U/L Total Protein (6.3-8.2) g/dL Albumin (3.5-5.0) g/dL Lipase (23-300) U/L Urine Color Urine Appearance (Clear) Urine pH (5.0-8.0) Ur Specific [place] (1.001-1.035) Urine Protein (Negative) Urine Glucose (UA) (Negative) Urine Ketones (Negative) Urine Blood (Negative) Urine Nitrite (Negative) Urine Bilirubin (Negative) Urine Urobilinogen (<2.0) mg/dL Ur Leukocyte Esterase (Negative) Disposition Clinical Impression: Enteritis Disposition: HOME SELF-CARE Condition: Stable Instructions (If sedation given, give patient instructions): Clear Liquid Diet (ED), Enteritis (ED) Additional Instructions: Please return to the Emergency Department if symptoms worsen or any other concerns. Is patient prescribed a controlled substance at d/c from ED?: No Referrals: None,Stated [Primary Care Provider] - 1-2 days Time of Disposition: 12:52
[2021-06-22 11:21] LABS: Basophils # (A) 0.1 k/uL (0-0.2); Basophils % (A) 2 %; Eosinophils # (A) 0.8 k/uL (0-0.7); Eosinophils % (A) 14 %; HCT 51.2 % (39.0-53.0); HGB 17.4 gm/dL (13.0-17.5); Lymphocytes # (A) 1.5 k/uL (1.0-4.8); Lymphocytes % (A) 26 %; MCV 102.8 fL (80.0-100.0); Macrocytosis Slight; Mean Platelet Volume 7.5; Monocytes # (A) 0.4 k/uL (0-1.0); Monocytes % (A) 6 %; Neutrophils # (A) 2.9 k/uL (1.3-7.7); Neutrophils % (A) 48 %; Platelet Count 206 k/uL (150-450); RBC 4.98 m/uL (4.30-5.90); WBC 5.9 k/uL (3.8-10.6)
[2021-06-22 11:23] LABS: Appearance,Urine Clear (Clear); Bilirubin,Urine Negative (Negative); Blood,Urine Negative (Negative); Color,Urine Light Yellow; Glucose,Urine (UA) Negative (Negative); Ketones,Urine Negative (Negative); Leukocyte Esterase,Urine Negative (Negative); Nitrite,Urine Negative (Negative); Protein,Urine Negative (Negative); Specific Gravity,Urine 1.004 (1.001-1.035); Urobilinogen,Urine <2.0 mg/dL (<2.0)
[2021-06-22] MEDS ORDERED: MORPHINE SULFATE 4 MG/ML SYRINGE IVP STA ×2 (11:25→12:20)
[2021-06-22 11:38] LABS: ALT 34 U/L (4-49); AST 47 U/L (17-59); African American GFR (CKD) >90 (>60 ml/min/1.73 sqM); Albumin 5.1 g/dL (3.5-5.0); Alkaline Phosphatase 150 U/L (38-126); Anion Gap 10 mmol/L; Blood Urea Nitrogen 9 mg/dL (9-20); Carbon Dioxide 26 mmol/L (22-30); Chloride 108 mmol/L (98-107); Glucose 94 mg/dL (74-99); Lipase 684 U/L (23-300); Non-African American GFR(CKD) >90 (>60 ml/min/1.73 sqM); Potassium 4.7 mmol/L (3.5-5.1); Sodium 144 mmol/L (137-145); Total Bilirubin 0.5 mg/dL (0.2-1.3); Total Protein 7.5 g/dL (6.3-8.2)
--- NOTE | 2021-06-22 12:01 | CT ---
EXAMINATION TYPE: CT abdomen pelvis w con DATE OF EXAM: 06/22/2021 COMPARISON: EXAMINATION TYPE: CT abdomen pelvis w con DATE OF EXAM: 06/22/2021 COMPARISON: None HISTORY: lower abd tenderness, +Mcburney point tender CT DLP: 625.9 mGycm Automated exposure control for dose reduction was used. TECHNIQUE: Helical acquisition of images was performed from the lung bases through the pelvis. CONTRAST: Performed without Oral Contrast and with IV Contrast, patient injected with 100 mL of Isovue 300. FINDINGS: LUNG BASES: No significant abnormality is appreciated. LIVER/GB: Noncirrhotic morphology. Hepatic and portal veins are patent. The gallbladder is unremarka ble. Tiny hypodensity adjacent to the gallbladder fossa likely represents focal fat. PANCREAS: No significant abnormality is seen. SPLEEN: No significant abnormality is seen. ADRENALS: No significant abnormality is seen. KIDNEYS: No significant abnormality is seen. FREE AIR: No free air is visualized. RETROPERITONEAL ADENOPATHY: None visualized REPRODUCTIVE ORGANS: No significant abnormality is seen URINARY BLADDER: No significant abnormality is seen. PELVIC ADENOPATHY: None visualized. OSSEOUS STRUCTURES: No significant abnormality is seen. BOWEL: Several loops of thick-walled small bowel mucosal hyperenhancement in the hemiabdomen. The la rge bowel is nondilated and contains gas and stool. The appendix is not definitely visualized. No inf lammatory change in the periappendiceal region. No free intraperitoneal air or fluid. OTHER: None.00 IMPRESSION: Several loops of mildly thick-walled small bowel with mucosal hyperenhancement in the left hemiabdome n could relate to enteritis. The large bowel is nondilated and contains gas and stool. The appendix i s not definitely visualized however there are no inflammatory changes in the periappendiceal region. No free intraperitoneal air or fluid.
[2021-06-22 12:45] VITALS: PULSE 67
[2021-06-22 13:24] VITALS: BP 124/83; RESP 18; TEMP 97.8
== END 2021-06-22 13:18 | disposition home or self-care (01) ==
LOC: EC 09:52
DX: K52.9 Noninfective gastroenteritis and colitis, unspecified (principal); F41.9 Anxiety disorder, unspecified; F17.200 Nicotine dependence, unspecified, uncomplicated; F12.90 Cannabis use, unspecified, uncomplicated; F14.90 Cocaine use, unspecified, uncomplicated
CPT/HCPCS: 36415; 80053; 83605; 83690; 85025; 81003; 74177; 99284; 96374; 96375; 96376; 96361; J2270; J1885; Q9967

== ENCOUNTER 2021-07-31 07:04 | Inpatient (IN) | payer BC, OTHER ==
[2021-07-31] MEDS ORDERED: KETOROLAC 15 MG/ML 1 ML VIAL IVP STA (07:19)
[2021-07-31] MEDS ORDERED: ONDANSETRON 4 MG/2 ML VIAL IVP STA ×2 (07:19→09:09)
[2021-07-31] MEDS ORDERED: SODIUM CHLORIDE 0.9% 2,000 ML IV STA (07:19)
[2021-07-31] MEDS ORDERED: HYDROmorphone 0.5 MG/0.5 ML SYRINGE IVP STA ×2 (07:19→08:17)
--- NOTE | 2021-07-31 07:25 | ED ---
Nausea/Vomiting/Diarrhea HPI - General Chief complaint: Nausea/Vomiting/Diarrhea Stated complaint: vomiting Time Seen by Provider: 07/31/21 07:12 Source: patient, RN notes reviewed Mode of arrival: ambulatory Limitations: no limitations - History of Present Illness Initial comments: Patient 35-year-old male presented to ER for nausea and abdominal pain. Patient states symptoms started 2 days ago and has not been able to keep down food or fluids since. Patient reports abdominal and back pain related to vomiting. no sick contacts reported, positive for: Back 2 months ago. - Related Data Home Medications Medication Instructions Recorded Confirmed No Known Home Medications 06/22/21 06/22/21 Allergies Allergy/AdvReac Type Severity Reaction Status Date / Time No Known Drug Allergies Allergy Unknown Verified 07/31/21 07:08 Review of Systems ROS Statement: Those systems with pertinent positive or pertinent negative responses have been documented in the HPI. ROS Other: All systems not noted in ROS Statement are negative. Past Medical History Past Medical History: No Reported History History of Any Multi-Drug Resistant Organisms: None Reported Past Surgical History: No Surgical Hx Reported Past Anesthesia/Blood Transfusion Reactions: No Reported Reaction Past Psychological History: Anxiety Smoking Status: Current every day smoker Past Alcohol Use History: Daily Past Drug Use History: Cocaine, Marijuana - Past Family History Father Family Medical History: No Reported History General Exam Limitations: no limitations General appearance: alert, in distress (Pain with shaking) Head exam: Present: atraumatic, normocephalic, normal inspection Eye exam: Present: normal appearance, PERRL, EOMI. Absent: scleral icterus, conjunctival injection, periorbital swelling ENT exam: Present: normal exam, mucous membranes moist Neck exam: Present: normal inspection. Absent: tenderness, meningismus, lymphadenopathy Respiratory exam: Present: normal lung sounds bilaterally. Absent: respiratory distress, wheezes, rales, rhonchi, stridor Cardiovascular Exam: Present: normal rhythm, tachycardia, normal heart sounds GI/Abdominal exam: Present: tenderness, guarding, normal bowel sounds Rectal exam: Present: deferred Extremities exam: Present: normal inspection, full ROM, normal capillary refill. Absent: tenderness, pedal edema, joint swelling, calf tenderness Back exam: Present: muscle spasm Neurological exam: Present: alert, oriented X3, CN II-XII intact Psychiatric exam: Present: normal affect, normal mood Skin exam: Present: warm, dry, intact, normal color. Absent: rash Course Vital Signs 07/31/21 07:08 Temperature 98.3 F Pulse Rate 126 H Respiratory 16 Rate Blood Pressure 172/92 O2 Sat by Pulse 95 Oximetry Medical Decision Making - Medical Decision Making 35-year-old presented for abdominal pain, nausea vomiting. Patient states that he is not been drinking heavily though he does have a history. Patient's found to have significant lactacidosis, metabolic acidosis most likely from dehydration as he is not hyperglycemic, no other clear reasons. There is no source for infection or source for sepsis at this time. Patient was given 2 L of fluids cart started on IV fluids maintenance case discussed with . she will be admitted for repeat labs, hydration - Lab Data Result diagrams: 07/31/21 07:31 07/31/21 07:31 Lab Results 07/31/21 07/31/21 07/31/21 Range/Units 07:31 07:31 07:31 WBC 15.9 H (3.8-10.6) k/uL RBC 5.14 (4.30-5.90) m/uL Hgb 17.9 H (13.0-17.5) gm/dL Hct 51.0 (39.0-53.0) % MCV 99.4 (80.0-100.0) fL MCH 34.9 (25.0-35.0) pg MCHC 35.1 (31.0-37.0) g/dL RDW 11.0 L (11.5-15.5) % Plt Count 236 (150-450) k/uL MPV 7.4 Neutrophils % 88 % Lymphocytes % 6 % Monocytes % 4 % Eosinophils % 1 % Basophils % 1 % Neutrophils # 14.1 H (1.3-7.7) k/uL Lymphocytes # 0.9 L (1.0-4.8) k/uL Monocytes # 0.6 (0-1.0) k/uL Eosinophils # 0.1 (0-0.7) k/uL Basophils # 0.1 (0-0.2) k/uL Sodium 135 L (137-145) mmol/L Potassium 3.6 (3.5-5.1) mmol/L Chloride 96 L (98-107) mmol/L Carbon Dioxide 20 L (22-30) mmol/L Anion Gap 19 mmol/L BUN 7 L (9-20) mg/dL Creatinine 0.77 (0.66-1.25) mg/dL Est GFR (CKD-EPI)AfAm >90 (>60 ml/min/1.73 sqM) Est GFR (CKD-EPI)NonAf >90 (>60 ml/min/1.73 sqM) Glucose 153 H (74-99) mg/dL Plasma Lactic Acid Suhail 6.5 H* (0.7-2.0) mmol/L Calcium 9.7 (8.4-10.2) mg/dL Magnesium 1.4 L (1.6-2.3) mg/dL Total Bilirubin 2.0 H (0.2-1.3) mg/dL AST 105 H (17-59) U/L ALT 56 H (4-49) U/L Alkaline Phosphatase 149 H (38-126) U/L Total Protein 8.1 (6.3-8.2) g/dL Albumin 5.2 H (3.5-5.0) g/dL Amylase 91 (30-110) U/L Lipase 186 (23-300) U/L Serum Alcohol <10 mg/dL Disposition Clinical Impression: Abdominal pain, Nausea & vomiting, Dehydration, Metabolic acidosis, Lactic acidosis Disposition: ADMITTED IP TO THIS HOSP Condition: Fair Referrals: None,Stated [Primary Care Provider] - 1-2 days
[2021-07-31 07:46] LABS: Basophils # (A) 0.1 k/uL (0-0.2); Basophils % (A) 1 %; Eosinophils # (A) 0.1 k/uL (0-0.7); Eosinophils % (A) 1 %; HGB 17.9 gm/dL (13.0-17.5); Lymphocytes # (A) 0.9 k/uL (1.0-4.8); Lymphocytes % (A) 6 %; MCH 34.9 pg (25.0-35.0); MCHC 35.1 g/dL (31.0-37.0); MCV 99.4 fL (80.0-100.0); Mean Platelet Volume 7.4; Monocytes # (A) 0.6 k/uL (0-1.0); Monocytes % (A) 4 %; Neutrophils # (A) 14.1 k/uL (1.3-7.7); Neutrophils % (A) 88 %; Platelet Count 236 k/uL (150-450); RBC 5.14 m/uL (4.30-5.90); WBC 15.9 k/uL (3.8-10.6)
[2021-07-31 08:06] LABS: AST 105 U/L (17-59); African American GFR (CKD) >90 (>60 ml/min/1.73 sqM); Albumin 5.2 g/dL (3.5-5.0); Alcohol <10 mg/dL; Alkaline Phosphatase 149 U/L (38-126); Amylase 91 U/L (30-110); Anion Gap 19 mmol/L; Blood Urea Nitrogen 7 mg/dL (9-20); Calcium 9.7 mg/dL (8.4-10.2); Carbon Dioxide 20 mmol/L (22-30); Chloride 96 mmol/L (98-107); Glucose 153 mg/dL (74-99); Lipase 186 U/L (23-300); Magnesium 1.4 mg/dL (1.6-2.3); Non-African American GFR(CKD) >90 (>60 ml/min/1.73 sqM); Potassium 3.6 mmol/L (3.5-5.1); Sodium 135 mmol/L (137-145); Total Protein 8.1 g/dL (6.3-8.2)
[2021-07-31 08:13] LABS: ALT 56 U/L (4-49)
--- NOTE | 2021-07-31 08:27 | CT ---
EXAMINATION TYPE: CT abdomen pelvis w con DATE OF EXAM: 07/31/2021 COMPARISON: 06/22/2021 INDICATION: vomiting, generalized pain DLP: 525.1 mGycm, Automated exposure control for dose reduction was used. CONTRAST: 100 mL of Isovue 300. Study performed without Oral Contrast TECHNIQUE: Axial images were obtained from above the diaphragm to the pubic rami in the axial plane a t 5 mm thick sections. Reconstructed images are reviewed on the computer in the coronal plane. FINDINGS: Limited CT sections are obtained the lung bases. The lung bases are clear. Small hiatal hernia is p resent. CT ABDOMEN: Liver: There may be some mild fatty infiltration liver. No discrete masses or cysts. Spleen: Normal Pancreas: Normal Adrenal glands: The adrenal glands are normal. Gallbladder: Normal Kidneys: No masses are evident. No hydronephrosis is present. No cysts are present. Delayed images were obtained through the kidneys, which remain unremarkable. Aorta: Normal Inferior vena cava: Normal. CT PELVIS: There are some scattered small bowel loops with fluid. No suspicious dilated loops of bowel are evide nt. Colon contains air. A few diverticuli without adjacent inflammatory change air within the sigmoid colon. This study is performed without oral contrast limiting bowel evaluation. Appendix: Visualized. No suspicious dilated tubular structure or inflammatory changes identified. Urinary bladder: Slightly decompressed but otherwise unremarkable Genitourinary structures: Prostate appears normal Osseous structures: No suspicious lytic or sclerotic lesions. IMPRESSIONS: 1. Nonspecific abdomen. No suspicious abnormality to account for abdominal pain and vomiting is iden tified. There may be some mild small bowel ileus present. 2. Mild fatty infiltration of the liver
[2021-07-31] MEDS: SODIUM CHLORIDE 0.9% 1,000 ML IV SCH ×2 (08:38→16:47)
[2021-07-31] MEDS ORDERED: NALOXONE 0.4 MG/ML 1 ML VIAL IV PRN (09:33)
[2021-07-31] MEDS ORDERED: HYDROmorphone 0.5 MG/0.5 ML SYRINGE IVP PRN (09:33)
[2021-07-31] MEDS ORDERED: ACETAMINOPHEN TAB 325 MG TAB PO PRN (09:33)
[2021-07-31] MEDS ORDERED: MAGNESIUM SULFATE-D5W PMX 1 GM in DEXTROSE/WATER 1 100ML.BAG IVPB ONE ×2 (09:39→12:18)
[2021-07-31 10:59] LABS: Appearance,Urine Clear (Clear); Bilirubin,Urine Negative (Negative); Blood,Urine Negative (Negative); Color,Urine Yellow; Glucose,Urine (UA) Negative (Negative); Ketones,Urine Trace (Negative); Leukocyte Esterase,Urine Negative (Negative); Nitrite,Urine Negative (Negative); PH, Urine 8.5 (5.0-8.0); Protein,Urine 1+ (Negative); RBC,Urine 1 /hpf (0-5); Squamous Epithelial Cell,Urine <1 /hpf (0-4); WBC,Urine 1 /hpf (0-5)
[2021-07-31] MEDS: NICOTINE 14MG/24HR PATCH TRANSDERM SCH (10:59)
[2021-07-31 11:01] LABS: Specific Gravity,Urine >1.050 (1.001-1.035)
[2021-07-31] MEDS ORDERED: ONDANSETRON 4 MG/2 ML VIAL IVP PRN (11:37)
[2021-07-31] MEDS ORDERED: KETOROLAC 15 MG/ML 1 ML VIAL IVP PRN (15:05)
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
[2021-07-31 16:21] LABS: Amphetamine Screen,Urine Not Detected (NotDetected); Barbiturate Screen,Urine Not Detected (NotDetected); Benzodiazepines Screen,Urine Not Detected (NotDetected); Cocaine Screen,Urine Not Detected (NotDetected); Methadone Screen, Urine Not Detected (NotDetected); Opiate Screen,Urine Detected (NotDetected); Oxycodone Screen, Urine Not Detected (NotDetected); Phencyclidine Screen,Urine Not Detected (NotDetected); Tricyclic Antidepressant,Urine Not Detected (NotDetected); Urn Cannabinoid Scrn Detected (NotDetected)
--- NOTE | 2021-07-31 16:43 | XR ---
EXAMINATION TYPE: XR chest 1V portable DATE OF EXAM: 07/31/2021 COMPARISON: 03/24/2019 HISTORY: Anxiety TECHNIQUE: Single view FINDINGS: Heart and mediastinum are normal. Lungs are clear. Diaphragm is normal. Bony thorax appears normal. There are chest leads. IMPRESSION: Normal chest. No change.
[2021-07-31] MEDS: HYDROcodone/APAP 5-325MG 1 EACH TAB PO PRN (17:53)
[2021-07-31] MEDS: PANTOPRAZOLE 40 MG/10 ML VIAL IVP SCH (20:48)
[2021-08-01] MEDS: SODIUM CHLORIDE 0.9% 1,000 ML IV SCH ×2 (01:30→09:40)
[2021-08-01] MEDS: HYDROcodone/APAP 5-325MG 1 EACH TAB PO PRN ×2 (02:13→10:28)
[2021-08-01 05:25] VITALS: PULSE 66; RESP 16
[2021-08-01 06:11] LABS: Basophils # (A) 0.1 k/uL (0-0.2); Basophils % (A) 1 %; Eosinophils # (A) 0.2 k/uL (0-0.7); Eosinophils % (A) 3 %; HCT 43.4 % (39.0-53.0); HGB 15.2 gm/dL (13.0-17.5); Lymphocytes # (A) 1.4 k/uL (1.0-4.8); Lymphocytes % (A) 20 %; MCH 34.6 pg (25.0-35.0); Mean Platelet Volume 7.6; Monocytes # (A) 0.4 k/uL (0-1.0); Monocytes % (A) 6 %; Neutrophils # (A) 4.5 k/uL (1.3-7.7); Neutrophils % (A) 67 %; Platelet Count 141 k/uL (150-450); RBC 4.38 m/uL (4.30-5.90); RDW 11.4 % (11.5-15.5); WBC 6.8 k/uL (3.8-10.6)
[2021-08-01 07:56] LABS: ALT 46 U/L (4-49); AST 87 U/L (17-59); African American GFR (CKD) >90 (>60 ml/min/1.73 sqM); Albumin 3.5 g/dL (3.5-5.0); Albumin/Globulin Ratio 1.5; Alkaline Phosphatase 101 U/L (38-126); Anion Gap 6 mmol/L; Blood Urea Nitrogen 4 mg/dL (9-20); Calcium 8.3 mg/dL (8.4-10.2); Carbon Dioxide 25 mmol/L (22-30); Chloride 105 mmol/L (98-107); Globulin 2.4 g/dL; Glucose 91 mg/dL (74-99); Non-African American GFR(CKD) >90 (>60 ml/min/1.73 sqM); Sodium 136 mmol/L (137-145); Total Bilirubin 2.4 mg/dL (0.2-1.3); Total Protein 5.9 g/dL (6.3-8.2)
[2021-08-01] MEDS: NICOTINE 14MG/24HR PATCH TRANSDERM SCH (07:58)
[2021-08-01] MEDS: PANTOPRAZOLE 40 MG/10 ML VIAL IVP SCH (07:58)
[2021-08-01 07:59] LABS: Potassium 3.6 mmol/L (3.5-5.1)
[2021-08-01 12:20] VITALS: BP 183/98; TEMP 98.9
[2021-08-01] MEDS ORDERED: amLODIPine 10 MG TAB PO STA (13:15)
[2021-08-02 13:21] LABS: Hepatitis A Antibody IgM Nonreactive (Nonreactive); Hepatitis B Core IgM Nonreactive (Nonreactive); Hepatitis C IgG Antibody Nonreactive (Nonreactive)
== END 2021-08-01 14:00 | disposition home or self-care (01) | DRG 641 ==
LOC: EC 07:04 → 5NMEDONC 08:33
PROVIDERS: ADMIT Internal Medicine; ATTEND Internal Medicine
DX: E86.0 Dehydration (principal); E83.42 Hypomagnesemia; Z20.822 Contact with and (suspected) exposure to COVID-19; B34.9 Viral infection, unspecified; E87.2 Acidosis; K76.0 Fatty (change of) liver, not elsewhere classified; R00.0 Tachycardia, unspecified; F12.90 Cannabis use, unspecified, uncomplicated; F17.290 Nicotine dependence, other tobacco product, uncomplicated; R53.1 Weakness; F41.9 Anxiety disorder, unspecified; Z86.19 Personal history of other infectious and parasitic diseases; W10.9XXA Fall (on) (from) unspecified stairs and steps, initial encounter; Y93.01 Activity, walking, marching and hiking
CPT/HCPCS: 36415; 51798; 71045; 74177; 80053; 80074; 80306; 80320; 81001; 82150; 83605; 83690; 83735; 85025; 87635; 93005; 96361; 96374; 96375; 96376; 99285

== ENCOUNTER 2021-11-30 11:07 | Emergency (ER) | payer BC, OTHER ==
[2021-11-30 11:12] VITALS: BP 124/77; PULSE 88; RESP 18; TEMP 98
--- NOTE | 2021-11-30 12:16 | ED ---
General Adult HPI - General Chief complaint: Extremity Injury, Lower Stated complaint: Foot injury Time Seen by Provider: 11/30/21 11:14 Source: patient, RN notes reviewed Mode of arrival: ambulatory Limitations: no limitations - History of Present Illness Initial comments: This a 36-year-old male presents emergency Department with chief complaint of right foot pain. Patient states that Brandy Vasquez told few days ago. Patient complains of bruising, pain and swelling. Patient had a right foot fracture the past. No paresthesias no other injuries noted. - Related Data Previous Rx's Medication Instructions Recorded Ibuprofen [Motrin] 600 mg PO Q8HR PRN #20 tab 11/30/21 Allergies Allergy/AdvReac Type Severity Reaction Status Date / Time No Known Allergies Allergy Unverified 11/30/21 11:39 Review of Systems ROS Statement: Those systems with pertinent positive or pertinent negative responses have been documented in the HPI. ROS Other: All systems not noted in ROS Statement are negative. Past Medical History Past Medical History: No Reported History History of Any Multi-Drug Resistant Organisms: None Reported Past Surgical History: No Surgical Hx Reported Past Anesthesia/Blood Transfusion Reactions: No Reported Reaction Past Psychological History: Anxiety Smoking Status: Current every day smoker Past Alcohol Use History: Daily Past Drug Use History: Marijuana - Past Family History Father Family Medical History: No Reported History General Exam Limitations: no limitations General appearance: alert, in no apparent distress Head exam: Present: atraumatic, normocephalic, normal inspection Eye exam: Present: normal appearance, PERRL, EOMI. Absent: scleral icterus, conjunctival injection, periorbital swelling Respiratory exam: Present: normal lung sounds bilaterally. Absent: respiratory distress, wheezes, rales, rhonchi, stridor Cardiovascular Exam: Present: regular rate, normal rhythm, normal heart sounds. Absent: systolic murmur, diastolic murmur, rubs, gallop, clicks Extremities exam: Present: other (Right foot there is swelling, ecchymosis across the distal portion of the foot and digits neurovascular intact, diffuse tenderness) Course Vital Signs 11/30/21 11:10 Temperature 98 F Pulse Rate 88 Respiratory 18 Rate Blood Pressure 124/77 O2 Sat by Pulse 99 Oximetry Medical Decision Making - Medical Decision Making X-rays negative for acute fracture. Patient is right foot contusion will be discharged in stable condition return parameters were discussed. Disposition Clinical Impression: Contusion of right foot Disposition: HOME SELF-CARE Condition: Stable Instructions (If sedation given, give patient instructions): Foot Contusion (ED) Additional Instructions: Please return to the Emergency Department if symptoms worsen or any other concerns. Prescriptions: Ibuprofen [Motrin] 600 mg PO Q8HR PRN #20 tab PRN Reason: Pain Is patient prescribed a controlled substance at d/c from ED?: No Referrals: None,Stated [Primary Care Provider] - 1-2 days Time of Disposition: 12:35
--- NOTE | 2021-11-30 12:26 | XR ---
Right foot. HISTORY: Pain COMPARISON: None. TECHNIQUE: 3 views the right foot were obtained FINDINGS: There is no fracture, dislocation, intraosseous or intra-articular abnormality. There is no radiopaqu e foreign body or abnormal soft tissue calcification or gas. IMPRESSION: No significant abnormality seen.
[2021-11-30] MEDS ORDERED: ACET/COD 300 MG/30 MG STARTER PACK 6 TAB BTL PO STA (12:35)
== END 2021-11-30 12:56 | disposition home or self-care (01) ==
LOC: EC 11:07
DX: S90.31XA Contusion of right foot, initial encounter (principal); F41.9 Anxiety disorder, unspecified; F17.200 Nicotine dependence, unspecified, uncomplicated; Z72.89 Other problems related to lifestyle; F12.90 Cannabis use, unspecified, uncomplicated; X58.XXXA Exposure to other specified factors, initial encounter
CPT/HCPCS: 99283

== ENCOUNTER → 2022-10-14 | Outpatient (CLI) | payer BC, OTHER ==
--- NOTE | 2022-10-14 08:19 | US ---
EXAMINATION TYPE: US renal artery duplex complet DATE OF EXAM: 10/14/2022 COMPARISON: CT CLINICAL HISTORY: I10 HTN. MEASUREMENTS: RENAL SIZE: Rt Kidney: 11.0 x 4.7 x 5.3cm Lt Kidney: 11.4 x 4.5 x 4.9cm RESISTANCE INDEX Right: 0.5 Left: 0.4 RA/AO RATIO (< 3.5 ) Right: 2.2 Left: 2.4 RA VELOCITY ( < 180 cm/s) Right: 116cm/s Left: 126cm/s No evidence of renal artery stenosis by ultrasound. IMPRESSION: No evidence for renal artery stenosis at this time by ultrasound.
== END | disposition home or self-care (01) ==
LOC: RADUSWWP 06:44
PROVIDERS: ATTEND Internal Medicine
DX: I10 Essential (primary) hypertension (principal)
CPT/HCPCS: 93975